=== PATIENT | female | born 1995 | race Caucasian/White ===

== ENCOUNTER 2017-07-10 18:52 | Emergency (ER) | payer MEDICAID, SELFPAY ==
[2017-07-10 18:56] VITALS: BP 146/85; PULSE 92; RESP 22; O2SAT 100; BMI 24.3
[2017-07-10 19:18] LABS: Microscopic, Urine URINE MICROSCOPIC (MICROSCOPIC)
[2017-07-10 19:21] LABS: Appearance,Urine SL CLOUDY (Clear); Bilirubin,Urine Negative (Negative); Blood, Urine Negative (Negative); Color,Urine YELLOW (Yellow); Glucose,Urine (UA) Negative (Negative); Ketones,Urine Negative (Negative); Leukocyte Esterase,Urine TRACE (Negative); Nitrate,Urine Negative (Negative); Protein,Urine Negative (Negative); Specific Gravity, Urine 1.025 (1.005-1.030); Urobilinogen,Urine 0.2 EU/dl (0.2)
[2017-07-10 19:49] LABS: Basophils % 0.3 % (0.1-2.0); Eosinophils # 0.2 K/mm3 (0.0-0.4); Eosinophils % 1.6 % (0.1-12.0); Hematocrit 37.9 % (37.0-47.0); Hemoglobin 12.4 g/dL (12.2-16.2); Lymphocytes # 2.3 K/mm3 (0.7-4.5); Mean Corpuscular HGB Conc 32.7 g/dL (31.8-35.4); Mean Corpuscular Hemoglobin 28.7 pg (27.0-31.2); Mean Corpuscular Volume 87.9 fl (81-99); Mean Platelet Volume 8.2 fl (7.4-10.4); Monocytes # 0.2 K/mm3 (0.1-1.0); Monocytes % 1.8 % (1.7-9.3); Neutrophils # 7.8 K/mm3 (1.8-7.8); Neutrophils % 74.2 % (37.0-80.0); Platelet Count 222 K/mm3 (142-424); Red Blood Count 4.32 M/mm3 (4.20-5.40); Red Cell Distribution Width 15.2 % (11.5-17.5); White Blood Count 10.5 K/mm3 (4.8-10.8)
[2017-07-10 19:56] LABS: Bacteria,Urine 2+ /lpf; RBC,Urine Occasional #/hpf (0-3); Squamous Epithelial Cell,Urine TNTC #/hpf (0-5); WBC,Urine Occasional #/hpf (0-3)
[2017-07-10 20:26] LABS: Alanine Aminotransferase 15 U/L (12-78); Albumin Level 3.1 gm/dL (3.4-5.0); Albumin/Globulin Ratio 0.8 (1.1-1.8); Alkaline Phosphatase 71 U/L (46-116); Anion Gap 12.8 mEq/L (5-15); Aspartate Amino Transferase 16 U/L (15-37); Bilirubin,Total 0.2 mg/dL (0.2-1.0); Blood Urea Nitrogen 6 mg/dL (7-18); Calcium 8.8 mg/dL (8.5-10.1); Carbon Dioxide 25 mmol/L (21.0-32.0); Chloride 105 mmol/L (98-107); Creatinine Clearance Estimated 173 mL/min (0-300); Creatinine,Serum 0.53 mg/dL (0.55-1.02); Estimated Glomerular Filt Rate 143 ml/min (>60); GFR (African American) 173 ML/MIN (>60); Glucose 74 mg/dL (74-106); Potassium 3.8 mmoL/L (3.5-5.1); Sodium 139 mmol/L (136-145); Total Protein,Serum 7.1 gm/dL (6.4-8.2)
--- NOTE | 2017-07-10 20:36 | HMH.EDBACK ---
ED Disposition Clinical Impression: Thoracic back pain Qualifiers: Chronicity: acute Back pain laterality: right Qualified Code(s): M54.6 - Pain in thoracic spine Qualifiers: Weeks of gestation: less than 8 weeks Qualified Code(s): Z3A.01 - Less than 8 weeks gestation of Disposition: Home, Self-Care Condition on Discharge: Good Instructions: Diet Additional Instructions: keep appt with dr castaneda this week Referrals: Marv Goodman MD [Primary Care Provider] - - Critical Care Critical Care Time: No Attestation: On 07/10/17, the high probability of a clinically significant, sudden or life threatening deterioration of the following system(s) required my full and direct attention, intervention and personal management. The time I documented below is in addition to time spent performing reported procedures but includes the following listed in this critical care notation. Medical Decision Making - Medical Records Medical records reviewed: Yes: I reviewed the patient's medical records. Vital Signs: 07/10/17 18:56 Pulse Rate [Right Brachial] 92 H Respiratory Rate 22 Blood Pressure [Right Arm] 146/85 Blood Pressure Mean [Right Arm] 105 Blood Pressure Source [Right Arm] Automatic Cuff Blood Pressure Position [Right Arm] Sitting 02 Sat by Pulse Oximetry 100 Oxygen Delivery Method Room Air - Lab Data Lab results reviewed: Yes: I reviewed the patient's lab results. Lab Results 07/10/17 19:10: Urine Color Yellow, Urine Appearance Sl cloudy, Urine pH 6.0, Ur Specific [place] 1.025, Urine Protein Negative, Urine Glucose (UA) Negative, Urine Ketones Negative, Urine Blood Negative, Urine Nitrate Negative, Urine Bilirubin Negative, Urine Urobilinogen 0.2, Ur Leukocyte Esterase Trace, Urine RBC Occasional, Urine WBC Occasional, Ur Squamous Epith Cells Tntc, Urine Bacteria 2+ 07/10/17 19:40: WBC 10.5, RBC 4.32, Hgb 12.4, Hct 37.9, MCV 87.9, MCH 28.7, MCHC 32.7, RDW 15.2, Plt Count 222, MPV 8.2, Neut % (Auto) 74.2, Lymph % (Auto) 22.0, [place] % (Auto) 1.8, Eos % (Auto) 1.6, Baso % (Auto) 0.3, Neut # (Auto) 7.8, Lymph # (Auto) 2.3, [place] # (Auto) 0.2, Eos # (Auto) 0.2, Baso # (Auto) 0.0 07/10/17 19:40: Sodium 139, Potassium 3.8, Chloride 105, Carbon Dioxide 25, Anion Gap 12.8, BUN 6 L, Creatinine 0.53 L, Estimated Creat Clear 173, Estimated GFR 143, Est GFR ( Amer) 173, Glucose 74, Calcium 8.8, Total Bilirubin 0.2, AST 16, ALT 15, Alkaline Phosphatase 71, Total Protein 7.1, Albumin 3.1 L, Globulin 4.0 H, Albumin/Globulin Ratio 0.8 L, HCG, Quant [id number] Result diagrams: 07/10/17 19:40 07/10/17 19:40 Orders (Tests/Meds): ED MEDICATIONS Discontinued Medications Generic Name Dose Route Start Last Admin Trade Name Freq PRN Reason Stop Dose Admin Sodium Chloride 1,000 mls @ 999 mls/hr 07/10/17 19:30 07/10/17 19:41 Sod Chloride 0.9% 1000ml Bag IV 07/10/17 20:30 999 mls/hr .Q1H1M ALONSO Administration ORDERS Category Date Time Status Urine Culture Stat Micro 07/10/17 19:10 Received - Ronald Inquiry Pt receiving controlled substance: No [facility] History I have reviewed the patient's past medical history: Yes Laterality Cases: Bilateral: Tonsillectomy Other Surgeries: Yes: Other - *Social History Smoking Status: Current every day smoker Tobacco Type: cigarettes # Packs/Day (cigarettes): 1 Alcohol Intake: never Substance Use Type: marijuana - Psychiatric History Expresses thoughts of harming self/others: None Suicide Plan Description: No Plan *Family Hx:: Hypertension, Diabetes, Stroke PHOTOVOLTAIC TECHNICIAN history: No PHOTOVOLTAIC TECHNICIAN history ROS Obtained: Yes All systems reviewed & no additional complaints - Constitutional Constitutional: Denies fever(s) - Eyes Eyes: Denies change in vision - ENT Ears, Nose, Mouth, and Throat: Denies sore throat - Cardiovascular Cardiovascular: Denies chest pain - Respiratory Respiratory: No cough - Gastrointestinal Gastroint
--- NOTE | 2017-07-10 20:39 | ED_ITS ---
ED Disposition Clinical Impression: Thoracic back pain Qualifiers: Chronicity: acute Back pain laterality: right Qualified Code(s): M54.6 - Pain in thoracic spine Qualifiers: Weeks of gestation: less than 8 weeks Qualified Code(s): Z3A.01 - Less than 8 weeks gestation of Disposition: Home, Self-Care Condition on Discharge: Good Instructions: Diet Additional Instructions: keep appt with dr castaneda this week Referrals: Marv Goodman MD [Primary Care Provider] - - Critical Care Critical Care Time: No Attestation: On 07/10/17, the high probability of a clinically significant, sudden or life threatening deterioration of the following system(s) required my full and direct attention, intervention and personal management. The time I documented below is in addition to time spent performing reported procedures but includes the following listed in this critical care notation. Medical Decision Making - Medical Records Medical records reviewed: Yes: I reviewed the patient's medical records. Vital Signs: 07/10/17 18:56 Pulse Rate [Right Brachial] 92 H Respiratory Rate 22 Blood Pressure [Right Arm] 146/85 Blood Pressure Mean [Right Arm] 105 Blood Pressure Source [Right Arm] Automatic Cuff Blood Pressure Position [Right Arm] Sitting 02 Sat by Pulse Oximetry 100 Oxygen Delivery Method Room Air - Lab Data Lab results reviewed: Yes: I reviewed the patient's lab results. Lab Results 07/10/17 19:10: Urine Color Yellow, Urine Appearance Sl cloudy, Urine pH 6.0, Ur Specific [place] 1.025, Urine Protein Negative, Urine Glucose (UA) Negative, Urine Ketones Negative, Urine Blood Negative, Urine Nitrate Negative, Urine Bilirubin Negative, Urine Urobilinogen 0.2, Ur Leukocyte Esterase Trace, Urine RBC Occasional, Urine WBC Occasional, Ur Squamous Epith Cells Tntc, Urine Bacteria 2+ 07/10/17 19:40: WBC 10.5, RBC 4.32, Hgb 12.4, Hct 37.9, MCV 87.9, MCH 28.7, MCHC 32.7, RDW 15.2, Plt Count 222, MPV 8.2, Neut % (Auto) 74.2, Lymph % (Auto) 22.0, [place] % (Auto) 1.8, Eos % (Auto) 1.6, Baso % (Auto) 0.3, Neut # (Auto) 7.8 , Lymph # (Auto) 2.3, [place] # (Auto) 0.2, Eos # (Auto) 0.2, Baso # (Auto) 0.0 07/10/17 19:40: Sodium 139, Potassium 3.8, Chloride 105, Carbon Dioxide 25, Anion Gap 12.8, BUN 6 L, Creatinine 0.53 L, Estimated Creat Clear 173, Estimated GFR 143, Est GFR ( Amer) 173, Glucose 74, Calcium 8.8, Total Bilirubin 0.2, AST 16, ALT 15, Alkaline Phosphatase 71, Total Protein 7.1, Albumin 3.1 L, Globulin 4.0 H, Albumin/Globulin Ratio 0.8 L, HCG, Quant [id number] H Result diagrams: 07/10/17 19:40 07/10/17 19:40 Orders (Tests/Meds): ED MEDICATIONS Discontinued Medications Generic Name Dose Route Start Last Admin Trade Name Freq PRN Reason Stop Dose Admin Sodium Chloride 1,000 mls @ 999 mls/hr 07/10/17 19:30 07/10/17 19:41 Sod Chloride 0.9% 1000ml Bag IV 07/10/17 20:30 999 mls/hr .Q1H1M ALONSO Administration ORDERS Category Date Time Status Urine Culture Stat Micro 07/10/17 19:10 Received - Ronald Inquiry Pt receiving controlled substance: No [facility] History I have reviewed the patient's past medical history: Yes Laterality Cases: Bilateral: Tonsillectomy Other Surgeries: Yes: Other - *Social History Smoking Status: Current every day smoker Tobacco Type: cigarettes # Packs/Day (cigarettes): 1
[2017-07-10 20:42] LABS: HCG,Quantitative 35626 mIU/mL
[2017-07-10 21:04] VITALS: BP 126/76; PULSE 80; RESP 12; TEMP 37; O2SAT 98
== END 2017-07-10 21:04 | disposition home or self-care (01) ==
PROVIDERS: Emergency Provider Emergency Medicine; PCP Emergency Medicine
DX: O26.891 Other specified pregnancy related conditions, first trimester (principal); M54.6 Pain in thoracic spine; O99.331 Smoking (tobacco) complicating pregnancy, first trimester; F17.210 Nicotine dependence, cigarettes, uncomplicated; Z3A.01 Less than 8 weeks gestation of pregnancy
CPT/HCPCS: 80053; 81001; 84702; 85025; 87086; 96365; 99283

== ENCOUNTER → 2017-07-13 11:05 | Outpatient (CLI) | payer MEDICAID, SELFPAY ==
[2017-07-13 11:36] LABS: Basophils % 0.3 % (0.1-2.0); Eosinophils # 0.1 K/mm3 (0.0-0.4); Eosinophils % 1.3 % (0.1-12.0); Hematocrit 36.7 % (37.0-47.0); Hemoglobin 11.9 g/dL (12.2-16.2); Lymphocytes # 2.1 K/mm3 (0.7-4.5); Lymphocytes % 32.6 K/mm3 (10-50); Mean Corpuscular HGB Conc 32.5 g/dL (31.8-35.4); Mean Corpuscular Hemoglobin 28.7 pg (27.0-31.2); Mean Corpuscular Volume 88.5 fl (81-99); Monocytes # 0.2 K/mm3 (0.1-1.0); Monocytes % 3.2 % (1.7-9.3); Neutrophils % 62.5 % (37.0-80.0); Platelet Count 223 K/mm3 (142-424); Red Blood Count 4.15 M/mm3 (4.20-5.40); Red Cell Distribution Width 15.5 % (11.5-17.5); White Blood Count 6.4 K/mm3 (4.8-10.8)
[2017-07-14 08:23] LABS: Rapid Plasma Reagin Ab Titer Non Reactive (NonRea<1:1)
[2017-07-14 19:24] LABS: HIV Screen 4th Generation wRfx Non Reactive (Non Reactive); Hepatitis B Surface Antigen Negative (Negative); Hepatitis C Antibody >11.0 s/co ratio (0.0-0.9); Rubella Antibodies, IgG 2.58 index (Immune >0.99)
== END ==
PROVIDERS: PCP Emergency Medicine; Visit Provider Nurse Practitioner Obstetrics & Gynecology
DX: Z34.90 Encounter for supervision of normal pregnancy, unspecified, unspecified trimester (principal)
CPT/HCPCS: 85025; 86592; 86703; 86762; 86850; 87340; 87380; G0432

== ENCOUNTER → 2017-07-17 09:06 | Outpatient (CLI) | payer MEDICAID, SELFPAY ==
--- NOTE | 2017-07-17 09:09 | US_ITS ---
US OB >= 14 weeks Fetus: INDICATION: ITS.REASON: US OB- Dates ORDERING PHYSICIAN: Cyrus Stein MD PATIENT AGE: 21 years TECHNIQUE: ultrasound transabdominal scanning. COMPARISON: No previous relevant studies. FINDINGS: Single viable intrauterine gestation. Cephalic position. Placenta: Anterior placenta grade 1. There is average amount fluid. The cervix appears satisfactory. Closed and measuring 4 cm with a small nabothian cyst or cystic area within the endocervical region at 8 mm. in length. Complete survey performed and was unremarkable on the submitted images as in PACS. No discrete anomalies identified on survey imaging by technologist. Active fetus. Three-vessel cord with satisfactory umbilical cord insertion. 4- chamber heart noted. Survey of brain & ventricles. Face and neck survey unremarkable. Diaphragm and chest views unremarkable. Abdomen: Both kidneys noted and unremarkable. Stomach noted and satisfactory. Spine: Survey of the spine satisfactory with no anomalies identified nor imaged. Both arms and legs noted. Amniotic Fluid: Adequate. Maternal adnexa: No significant findings. Measurements: Average ultrasound age 19w1d. Gestational Age 23w3d. Estimated due date by ultrasound age 0712/10/2017. Estimated weight 276 grams.. This is 2nd percentile according to last menstrual period. BPD = 19w0d OFD = 19w3d HC = 18w4d AC = 19w6d FL = 18w5d Heart Rate = 155 Cerebellum = 19w4d Humerus = 18w5d HC/AC is 1.08 (1.05-1.21). CI is 76% (70-86%). FL/BPD is 66% (71-87%). FL/AC is 20% (20-24%). IMPRESSION: There is a single live fetus present in cephalic presentation with an average ultrasound age of 19 weeks 1 day and estimated due date of 12-10-17. Estimated weight is 276 g which is only at 2nd percentile. No obvious anatomic abnormalities. Please see above for detail.
== END ==
PROVIDERS: Family Provider Emergency Medicine; PCP Emergency Medicine; Visit Provider Nurse Practitioner Obstetrics & Gynecology
DX: O26.841 Uterine size-date discrepancy, first trimester (principal)
CPT/HCPCS: 76805

== ENCOUNTER 2017-07-22 10:19 | Emergency (ER) | payer MEDICAID, SELFPAY ==
[2017-07-22 10:51] VITALS: BP 123/63; PULSE 85; RESP 18; TEMP 36.6; O2SAT 100; BMI 25.0
[2017-07-22 11:38] LABS: Microscopic, Urine URINE MICROSCOPIC (MICROSCOPIC)
[2017-07-22 11:43] LABS: Appearance,Urine SL CLOUDY (Clear); Blood, Urine 2+ (Negative); Color,Urine YELLOW (Yellow); Glucose,Urine (UA) Negative (Negative); Ketones,Urine Negative (Negative); Leukocyte Esterase,Urine Negative (Negative); Nitrate,Urine Negative (Negative); Protein,Urine TRACE (Negative)
[2017-07-22 11:44] LABS: Basophils % 0.2 % (0.1-2.0); Eosinophils # 0.2 K/mm3 (0.0-0.4); Hematocrit 35.4 % (37.0-47.0); Hemoglobin 11.5 g/dL (12.2-16.2); Lymphocytes # 1.9 K/mm3 (0.7-4.5); Lymphocytes % 29.4 K/mm3 (10-50); Mean Corpuscular HGB Conc 32.5 g/dL (31.8-35.4); Mean Corpuscular Hemoglobin 28.6 pg (27.0-31.2); Mean Platelet Volume 8.1 fl (7.4-10.4); Monocytes # 0.2 K/mm3 (0.1-1.0); Monocytes % 2.7 % (1.7-9.3); Neutrophils # 4.1 K/mm3 (1.8-7.8); Neutrophils % 64.7 % (37.0-80.0); Platelet Count 210 K/mm3 (142-424); Red Blood Count 4.02 M/mm3 (4.20-5.40); Red Cell Distribution Width 15.2 % (11.5-17.5); White Blood Count 6.4 K/mm3 (4.8-10.8)
[2017-07-22 11:45] LABS: Bilirubin,Urine Negative (Negative)
[2017-07-22 11:54] LABS: Bacteria,Urine 3+ /lpf; Mucus,Urine 3+ /lpf
[2017-07-22 11:55] LABS: Alanine Aminotransferase 16 U/L (12-78); Albumin Level 2.8 gm/dL (3.4-5.0); Albumin/Globulin Ratio 0.7 (1.1-1.8); Alkaline Phosphatase 60 U/L (46-116); Anion Gap 10.7 mEq/L (5-15); Aspartate Amino Transferase 10 U/L (15-37); Bilirubin,Total 0.2 mg/dL (0.2-1.0); Blood Urea Nitrogen 6 mg/dL (7-18); Calcium 8.7 mg/dL (8.5-10.1); Carbon Dioxide 27 mmol/L (21.0-32.0); Chloride 104 mmol/L (98-107); Creatinine Clearance Estimated 219 mL/min (0-300); Creatinine,Serum 0.43 mg/dL (0.55-1.02); Estimated Glomerular Filt Rate 182 ml/min (>60); GFR (African American) 220 ML/MIN (>60); Globulin 3.8 gm/dl (1.3-3.2); Glucose 82 mg/dL (74-106); Potassium 3.7 mmoL/L (3.5-5.1); Sodium 138 mmol/L (136-145); Total Protein,Serum 6.6 gm/dL (6.4-8.2)
[2017-07-22 13:40] VITALS: BP 112/75; PULSE 80; RESP 18; TEMP 36.1
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
== END 2017-07-22 13:38 | disposition home or self-care (01) ==
LOC: ER 11:31
PROVIDERS: Emergency Provider Emergency Medicine; Family Provider Emergency Medicine; PCP Nurse Practitioner Obstetrics & Gynecology
DX: O46.8X2 Other antepartum hemorrhage, second trimester (principal); Z3A.19 19 weeks gestation of pregnancy; F17.210 Nicotine dependence, cigarettes, uncomplicated; Z88.0 Allergy status to penicillin; Z88.6 Allergy status to analgesic agent
CPT/HCPCS: 80053; 81001; 85025; 86900; 86901; 87086; 99281

== ENCOUNTER → 2017-08-09 16:22 | Outpatient (REF) | payer MEDICAID, SELFPAY | LOC: LAB 16:22 | PROVIDERS: Visit Provider Nurse Practitioner Obstetrics & Gynecology | DX: Z34.90 Encounter for supervision of normal pregnancy, unspecified, unspecified trimester (principal) | CPT/HCPCS: 87086 ==

== ENCOUNTER 2017-09-26 14:42 | Outpatient (CLI) | payer SELFPAY ==
[2017-09-26 14:56] VITALS: BMI 23.8
[2017-09-26 15:03] VITALS: BP 115/64; PULSE 68; RESP 16; TEMP 36.9; O2SAT 95; BMI 23.8
[2017-09-26 15:04] LABS: Microscopic, Urine URINE MICROSCOPIC (MICROSCOPIC)
[2017-09-26 15:05] LABS: Appearance,Urine CLEAR (Clear); Blood, Urine Negative (Negative); Color,Urine YELLOW (Yellow); Glucose,Urine (UA) Negative (Negative); Ketones,Urine Negative (Negative); Leukocyte Esterase,Urine TRACE (Negative); Nitrate,Urine Negative (Negative); Protein,Urine TRACE (Negative)
[2017-09-26 15:41] LABS: Bilirubin,Urine 1+ (Negative)
[2017-09-26 15:44] LABS: Bacteria,Urine 2+ /lpf; Mucus,Urine 4+ /lpf; RBC,Urine Occasional #/hpf (0-3); Squamous Epithelial Cell,Urine 20-50 #/hpf (0-5)
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
[2017-09-26 17:42] LABS: Basophils % 0.1 % (0.1-2.0); Eosinophils # 0.1 K/mm3 (0.0-0.4); Eosinophils % 1.2 % (0.1-12.0); Hematocrit 25.8 % (37.0-47.0); Hemoglobin 8.5 g/dL (12.2-16.2); Lymphocytes # 1.5 K/mm3 (0.7-4.5); Lymphocytes % 13.7 K/mm3 (10-50); Mean Corpuscular Hemoglobin 29.7 pg (27.0-31.2); Mean Corpuscular Volume 89.8 fl (81-99); Mean Platelet Volume 8.3 fl (7.4-10.4); Monocytes # 0.2 K/mm3 (0.1-1.0); Monocytes % 1.8 % (1.7-9.3); Neutrophils # 9.3 K/mm3 (1.8-7.8); Neutrophils % 83.2 % (37.0-80.0); Platelet Count 305 K/mm3 (142-424); Red Blood Count 2.88 M/mm3 (4.20-5.40); Red Cell Distribution Width 13.4 % (11.5-17.5); White Blood Count 11.2 K/mm3 (4.8-10.8)
[2017-09-26 17:55] LABS: Anion Gap 13.2 mEq/L (5-15); Blood Urea Nitrogen 4 mg/dL (7-18); Carbon Dioxide 23 mmol/L (21.0-32.0); Chloride 102 mmol/L (98-107); Creatinine Clearance Estimated 178 mL/min (0-300); Estimated Glomerular Filt Rate 152 ml/min (>60); GFR (African American) 183 ML/MIN (>60); Glucose 130 mg/dL (74-106); Potassium 3.2 mmoL/L (3.5-5.1); Sodium 135 mmol/L (136-145)
== END 2017-09-26 20:11 | disposition home or self-care (01) ==
LOC: OBOUT 14:46 → OB 14:47
PROVIDERS: PCP Nurse Practitioner Obstetrics & Gynecology; Visit Provider Nurse Practitioner Obstetrics & Gynecology
DX: O26.899 Other specified pregnancy related conditions, unspecified trimester (principal); V89.2XXA Person injured in unspecified motor-vehicle accident, traffic, initial encounter; Z3A.29 29 weeks gestation of pregnancy
CPT/HCPCS: 36415; 59025; 80048; 81001; 85025; 87086; 96360

== ENCOUNTER → 2017-11-01 13:59 | Outpatient (CLI) | payer MEDICAID, SELFPAY ==
--- NOTE | 2017-11-01 | US_ITS ---
US OB biophysical profile, US OB follow up, US SD Ratio umbilical artery: COMPARISON is made to 07/17/2017 Indication: Small for gestational age ITS.REASON: SGA-US OB BPP and Growth ORDERING PHYSICIAN: Cyrus Stein MD PATIENT AGE: 22 years FINDINGS: The following parameters are obtained: Average ultrasound age is 32w4d. Estimated due date by ultrasound is 12/23/2017. Estimated weight is 1886 g. This is 3rd percentile. The estimated due date by previous ultrasound of 07/17/2017 was 12/10/2017 BPD: 33w0d OFD: 33w4d HC: 33w0d AC: 31w6d FL: 32w0d heart rate: 128 bpm. HC/AC: 1.07 (0.96-1.11) Cephalic index: 77% (70-86%) FL/BPD: 75% (71-87%) FL/AC: 22% (20-24%) Amniotic fluid index: 13 cm Qualitative AFV: 2 breathing movements: 2 Gross body movements: 2 Tone: 2 Biophysical profile score: 8/8 Doppler evaluation of the umbilical artery: SD ratio: 3.9. This is slightly elevated Resistive index: 0.74 No obvious anomalies evident. Placenta: Anterior GR 2. No previa or abruption Cervix: Appears closed and measures 3 cm IMPRESSION: There is a single live fetus which is in cephalic presentation with an average ultrasound age of 32 weeks 4 days and an estimated due date of 12/23/2017 which is approximately 2 weeks behind estimated due date of previous ultrasound. Estimated weight is at the 3rd percentile at 1886 g. Placenta is anterior and grade 2. SD ratio is slightly elevated at 3.9.
== END ==
PROVIDERS: Family Provider Emergency Medicine; PCP Nurse Practitioner Obstetrics & Gynecology; Visit Provider Nurse Practitioner Obstetrics & Gynecology
DX: O36.5131 Maternal care for known or suspected placental insufficiency, third trimester, fetus 1 (principal)
CPT/HCPCS: 76816; 76819; 76820

== ENCOUNTER → 2017-11-09 17:27 | Outpatient (REF) | payer MEDICAID, SELFPAY | LOC: LAB 17:27 | PROVIDERS: Visit Provider Nurse Practitioner Obstetrics & Gynecology | DX: Z34.90 Encounter for supervision of normal pregnancy, unspecified, unspecified trimester (principal) | CPT/HCPCS: 86403 ==

== ENCOUNTER → 2018-11-29 17:40 | Outpatient (CLI) | payer MEDICAID, SELFPAY ==
[2018-11-29 18:41] LABS: HCG,Quantitative 1 mIU/mL
== END ==
PROVIDERS: Visit Provider Nurse Practitioner Obstetrics & Gynecology
DX: Z32.00 Encounter for pregnancy test, result unknown (principal)
CPT/HCPCS: 36415; 84702

== ENCOUNTER → 2019-10-27 14:23 | Outpatient (CLI) | payer OTHER, SELFPAY ==
--- NOTE | 2019-10-27 14:24 | US_ITS ---
PROCEDURE: US OB <= 14 WEEKS FETUS CLINICAL INDICATION: size and dates Early Ob ultrasound COMPARISON: OBBIO US OB biophysical profile from 11/01/2017 FINDINGS: An intrauterine gestational sac is present with a pole with a crown-rump length of 1.67cm correlating to gestational age of 8weeks 1day. heart tones are present with an FHR of 146bpm. Yolk sac is noted. Unremarkable adnexa IMPRESSION: Live IUP at 8 weeks 1 day. Estimated due date by Ultrasound is 06/06/2020 Dictated by: Mina Mehta MD 10/27/2019 16:16 Electronically signed by Mina Mehta MD in [place] 10/27/2019 16:16
== END ==
PROVIDERS: PCP Internal Medicine; Visit Provider Obstetrics & Gynecology
DX: Z34.90 Encounter for supervision of normal pregnancy, unspecified, unspecified trimester (principal)
CPT/HCPCS: 76801

== ENCOUNTER 2019-11-26 20:46 | Emergency (ER) | payer OTHER, SELFPAY ==
[2019-11-26 20:47] VITALS: BP 134/85; PULSE 86; RESP 19; TEMP 36.8; O2SAT 97; BMI 22.3
[2019-11-26 21:31] LABS: Apearance,Urine Clear (Clear); Bilirubin,Urine 2+ (Negative); Blood, Urine Negative (Negative); Color,Urine Dark Yellow (Yellow); Glucose,Urine (UA) Negative (Negative); Ketones,Urine TRACE (Negative); Protein,Urine 1+ (Negative); Specific Gravity, Urine 1.025 (1.005-1.030)
[2019-11-26 21:32] LABS: UTC Leukocyte Esterase,Urine Negative (Negative); UTC Nitrate,Urine Negative (Negative); Urobilinogen,Urine 1 EU/dl (0.2)
--- NOTE | 2019-11-26 21:34 | HMH.EDUTC ---
[facility] Disposition Clinical Impression: Abscess Cellulitis Qualifiers: Site of cellulitis: extremity Site of cellulitis of extremity: lower extremity Laterality: right Qualified Code(s): L03.115 - Cellulitis of right lower limb Disposition: Home, Self-Care Condition on Discharge: Good Instructions: Cellulitis, Cephalexin, Mupirocin, DI for Skin Abscess Additional Instructions: *Start antibiotic(s) immediately and be sure to take as ordered for the FULL length of time although you may be feeling better or start to see improvement in the next 24-48 hours *Monitor closely. Outlined redness so that you can monitor easier. Follow up immediately for new or worsening symptoms including but not limited to redness, swelling, streaking from site fever or chills. *Warm compress 15 minutes 3-4 times day *Never squeeze or pop these on your own. Seek immediate medical attention next time this occurs *Monitor Temp. Tylenol every 4 hours as needed and ibuprofen every 6 hours as needed (as long as your primary care doctor has told you that it is ok to take both. For fever, aches, pain. ER if no less that 101 despite Tylenol and ibuprofen Follow up with your family doctor/primary care physician in the next 48-72 hours if no improvement Make sure to follow up with Dr Melton for further evaluation and treatment of area Return if needed Straight to ER if any life threatening symptoms Prescriptions: cephALEXin [Keflex 500mg Cap] 500 mg PO QID 7 Days #28 cap Transmission Status: Pending to [facility] Mupirocin Calcium [Mupirocin 2% Cream 15gm] 1 applicatio TP TID #1 tube Transmission Status: Pending to [facility] Referrals: Catarino Melton [Primary Care Provider] - As needed Forms: Work/School Release Time of Disposition: 21:36 Medical Decision Making - Ronald Inquiry Pt receiving controlled substance: No Ronald was queried for this patient: No Vital Signs: 11/26/19 20:47 Temperature 98.2 F Temperature Source Oral Pulse Rate [Right] 86 Respiratory Rate 19 Blood Pressure [Right Arm] 134/85 Blood Pressure Mean [Right Arm] 101 02 Sat by Pulse Oximetry 97 - Lab Data Lab results reviewed: Yes: I reviewed the patient's lab results. Lab Results 11/26/19 21:09: Urine Color Dark yellow, Urine Appearance Clear, Urine pH 6.0, Ur Specific [place] 1.025, Urine Protein 1+, Urine Glucose (UA) Negative, Urine Ketones Trace, Urine Blood Negative, Urine Nitrate Negative, Urine Bilirubin 2+ A, Urine Urobilinogen 1, Ur Leukocyte Esterase Negative - Reevaluation(s) Time: 21:39 Reevaluation #1: Patient states that she is allergic to PCN but has taken Keflex in the past without reaction or complications [facility] HPI - General Stated complaint: spot on leg Time Seen by Provider: 11/26/19 21:34 Mode of Arrival: Ambulatory Limitations: No Limitations Description of Symptoms (Recalled from Triage Doc. by RN): Possible UTI and bug bite on right calf HEENT Symptoms (Recalled from RN notes): No Resp Symptoms (Recalled from RN notes): No Skin Symptoms (Recalled from RN notes): Yes MS Symptoms (Recalled from RN notes): No Functional Status (Recalled from RN notes): na - History of Present Illness Provider Complaint: Patient states that she noticed she had hard red spot on her right lower leg and she watched it for the last couple of days to see if would go away and it didnt State that she noticed it was red and hard and she thought it may be a bug bite that got infected and she has history of abscess also wants to get her urine checked for UTI states that she is 3mth OB and having some burning with urination - Related Data Home Medications Medication Instructions Recorded Confirmed buprenorphine 8 mg-naloxone 2 mg 1 tab SUBLINGUAL BID tab 10/30/19 sublingual tablet gabapentin 600 mg tablet 600 mg PO QID tab 10/30/19 meloxicam 15 mg tablet 15 mg PO DAILY 10/30/19 Previous Rx's Medication Instructions Recorded ondans
[2019-11-26 21:37] VITALS: BP 130/85; PULSE 80; RESP 20; TEMP 36.8; O2SAT 98
== END 2019-11-26 21:39 | disposition home or self-care (01) ==
PROVIDERS: Emergency Provider Nurse Practitioner; PCP Internal Medicine
DX: L03.115 Cellulitis of right lower limb (principal); F17.210 Nicotine dependence, cigarettes, uncomplicated; Z90.09 Acquired absence of other part of head and neck
CPT/HCPCS: 81003; 99201

== ENCOUNTER 2019-12-12 20:38 | Emergency (ER) | payer OTHER, SELFPAY ==
[2019-12-12 20:53] VITALS: BP 127/77; PULSE 68; RESP 20; TEMP 36.8; O2SAT 97; BMI 21.6
--- NOTE | 2019-12-12 20:54 | HMH.EDUTC ---
[facility] [place] Disposition Clinical Impression: Qualifiers: Weeks of gestation: 13 weeks Qualified Code(s): Z3A.13 - 13 weeks gestation of Nausea & vomiting Qualifiers: Vomiting type: unspecified Vomiting Intractability: non-intractable Qualified Code(s): R11.2 - Nausea with vomiting, unspecified Disposition: Home, Self-Care Condition on Discharge: Good Instructions: Diet Additional Instructions: Drink plenty of fluids. Take tylenol or ibuprofen for pain or fever. Take the medications as directed. Follow up with your regular doctor. GO TO THE ER FOR ANY WORSENING SYMPTOMS Prescriptions: Ondansetron [Zofran 4mg ODT] 4 mg PO Q8HP PRN #9 tab.rapdis PRN Reason: Nausea Transmission Status: Pending to [facility] Referrals: Catarino Melton [Primary Care Provider] - Forms: Work/School Release Time of Disposition: 20:58 Medical Decision Making - Medical Records Medical records reviewed: No: I reviewed the patient's medical records. - Ronald Inquiry Pt receiving controlled substance: No Vital Signs: 12/12/19 20:53 Temperature 98.2 F Temperature Source Oral Pulse Rate [Left Brachial] 68 Respiratory Rate 20 Blood Pressure [Left Arm] 127/77 Blood Pressure Mean [Left Arm] 93 Blood Pressure Source [Left Arm] Automatic Cuff Blood Pressure Position [Left Arm] Sitting 02 Sat by Pulse Oximetry 97 Oxygen Delivery Method Room Air [facility] [place] HPI - General Stated complaint: nausea 13 weeks Time Seen by Provider: 12/12/19 20:54 - History of Present Illness Provider Complaint: She c/o nausea and vomiting. She is 13 weeks . She has ran out of the nausea medications that were prescribed by Dr. Bradley (her ob doctor). She denies any blood in her vomit. She denies any diarrhea. She denies any abdominal pain or other complaints. - Related Data Home Medications Medication Instructions Recorded Confirmed buprenorphine 8 mg-naloxone 2 mg 1 tab SUBLINGUAL BID tab 10/30/19 sublingual tablet gabapentin 600 mg tablet 600 mg PO QID tab 10/30/19 Previous Rx's Medication Instructions Recorded ondansetron 4 mg disintegrating 4 mg PO Q8H #30 tab 11/05/19 tablet Mupirocin Calcium [Mupirocin 2% 1 applicatio TP TID #1 tube 11/26/19 Cream 15gm] cephALEXin [Keflex 500mg Cap] 500 mg PO QID 7 Days #28 cap 11/26/19 Ondansetron [Zofran 4mg ODT] 4 mg PO Q8HP PRN #9 tab.rapdis 12/12/19 Allergies Allergy/AdvReac Type Severity Reaction Status Date / Time morphine [MORPHINE] Allergy Unknown Verified 11/28/19 11:59 Penicillins [PENICILLINS] Allergy Unknown Verified 11/28/19 11:59 [facility] History - Hepatitis A Screen Attestation statement:: This patient has been screened for Hepatitis A risk factors. I have reviewed the patient's past medical history: Yes Medical History: Denies:: Cancer, Diabetes Mellitus Type 1, Diabetes Mellitus Type 2, MRSA Other Medical History: Reports: Liver Disease Laterality Cases: Bilateral: Tonsillectomy Other Surgeries: Yes: Other. No: Amputation: No Fractures: No Comment: 2004-tonsils - Social History Smoking Status: Current every day smoker Tobacco Type: cigarettes # Packs/Day (cigarettes): 1 #Yrs smoked (if former smoker): 10 Alcohol Intake: never Substance Use Type: former substance user Occupational Status: employed Housing: apartment Household Members: significant other Family Hx:: Hypertension, Diabetes, Stroke, Heart Attack DRAGLINE OPERATOR HELPER history: No DRAGLINE OPERATOR HELPER history ROS Obtained: No All systems reviewed & no additional complaints - Constitutional Constitutional: Denies chills, Denies fever(s) - Gastrointestinal Gastrointestingal: Reports: as per HPI - Genitourinary Female Genitourinary: Denies dysuria, Denies urinary frequency, Denies urinary incontinence, Denies urinary hesitancy, Denies urinary urgency - Musculoskeletal Musculoskeletal: Denies back pain - Integumentary/Breasts S
[2019-12-12 20:59] VITALS: BP 127/77; PULSE 68; RESP 20; TEMP 36.8; O2SAT 97
== END 2019-12-12 21:03 | disposition home or self-care (01) ==
PROVIDERS: Emergency Provider Nurse Practitioner Family; PCP Internal Medicine
DX: O21.0 Mild hyperemesis gravidarum (principal); Z3A.13 13 weeks gestation of pregnancy; F17.210 Nicotine dependence, cigarettes, uncomplicated
CPT/HCPCS: 99201

== ENCOUNTER → 2020-01-22 14:54 | Outpatient (CLI) | payer OTHER, SELFPAY ==
--- NOTE | 2020-01-22 14:54 | US_ITS ---
PROCEDURE: US OB /MATERNAL DETAIL CLINICAL INDICATION: US OB Complete COMPARISON: US US OB <= 14 WEEKS FETUS from 10/27/2019 FINDINGS: There is a single live fetus which is in cephalic presentation. heart and body motion is noted. The cervix is closed without shortening. The cervix measures 3 cm transabdominal. The placenta is posterior and high. Complete survey performed and was unremarkable on the submitted images as in PACS. No discrete anomalies identified on survey imaging by technologist. Active fetus. Three-vessel cord with satisfactory umbilical cord insertion. 4- chamber heart noted. Survey of brain & ventricles Unremarkable. Face and neck survey unremarkable. Diaphragm and chest views unremarkable. Abdomen: Both kidneys noted and unremarkable. Stomach noted and satisfactory. Spine: Survey of the spine satisfactory with no anomalies identified nor imaged. Both arms and legs noted. Amniotic Fluid: Adequate. Maternal adnexa: No significant findings. Measurements: Average ultrasound age 20weeks 3days. Gestational Age 20weeks 4days Estimated due date by ultrasound age 1206/07/2020. Estimated weight 353g BPD = 20weeks 5days OFD = 20weeks 5days HC = 20weeks AC = 20weeks 4days FL = 20weeks 3days Growth Percentile= 29percent% Heart Rate = 147bpm Cerebellum = 20weeks 4days Humerus = HC/AC is 1.13 CI is 0.79 FL/BPD is 0.69 FL/AC is 0.22 IMPRESSION: Live IUP at 20 weeks 3 days. All parameters correlate with no obvious anomalies. Please see above for detail Dictated by: Mina Mehta MD 01/23/2020 11:43 Mina Mehta MD in [place] 01/23/2020 11:43
== END ==
PROVIDERS: PCP Internal Medicine; Visit Provider Obstetrics & Gynecology
DX: Z36.0 Encounter for antenatal screening for chromosomal anomalies (principal)
CPT/HCPCS: 76811

== ENCOUNTER 2020-01-27 20:56 | Emergency (ER) | payer OTHER, SELFPAY ==
[2020-01-27 21:09] VITALS: PULSE 80; RESP 20; TEMP 37.1; O2SAT 98; BMI 20.9
--- NOTE | 2020-01-27 21:27 | HMH.EDUTC ---
[facility] [place] Clinical Impression: Scabies Disposition: Home, Self-Care Condition on Discharge: Good Instructions: Scabies, DI for Scabies, Permethrin Topical Additional Instructions: Permethrin 5% cream for all family members[1] Apply from neck down to your toes before bed Leave on for 8-12hr before washing off with shower Repeat in 14 days if no improvement You may continue to have itching for the next few days after using cream Follow up with Family doctor if no improvement or any worsening of symptoms Return if needed Straight to ER if any life threatening symptoms Make sure to wash all bed linen, toys and furniture Prescriptions: Permethrin [Elimite 5% cream 60gm tube] 1 applicatio TP DIRECTED #1 tube Transmission Status: Sent to [facility] Referrals: Catarino Melton [Primary Care Provider] - As needed Time of Disposition: 21:31 Medical Decision Making - Ronald Inquiry Pt receiving controlled substance: No Ronald was queried for this patient: No Vital Signs: 01/27/20 21:09 Temperature 98.7 F Temperature Source Oral Pulse Rate [Right Brachial] 80 Respiratory Rate 20 02 Sat by Pulse Oximetry 98 Oxygen Delivery Method Room Air [facility] [place] HPI - General Stated complaint: Possible bug bites Time Seen by Provider: 01/27/20 21:10 Mode of Arrival: Ambulatory Source of Information: Patient Limitations: No Limitations Description of Symptoms (Recalled from Triage Doc. by RN): PATIENT C/O POSSIBLE SCABIES HEENT Symptoms (Recalled from RN notes): No Resp Symptoms (Recalled from RN notes): No Skin Symptoms (Recalled from RN notes): Yes MS Symptoms (Recalled from RN notes): No Functional Status (Recalled from RN notes): WNL - History of Present Illness Provider Complaint: Patient states they have been cleaning out an abandoned house and thinks she has got scabies States that she noticed she was having bites on her lower legs, feet and between her toes States that she noticed they seem to moving up her legs and she wanted to come in and get checked States that she is and wanted to get treated if needed - Related Data Home Medications Medication Instructions Recorded Confirmed buprenorphine 8 mg-naloxone 2 mg 1 tab SUBLINGUAL BID tab 10/30/19 12/12/19 sublingual tablet gabapentin 600 mg tablet 600 mg PO QID tab 10/30/19 12/12/19 prenat.vits,jesús,ddb-lbbr-rowwe 1 tab PO DAILY 12/25/19 Previous Rx's Medication Instructions Recorded ondansetron 4 mg disintegrating 4 mg PO Q4H PRN #30 tab 12/15/19 tablet Permethrin [Elimite 5% cream 60gm 1 applicatio TP DIRECTED #1 tube 01/27/20 tube] Allergies Allergy/AdvReac Type Severity Reaction Status Date / Time morphine [MORPHINE] Allergy Unknown Verified 12/25/19 15:27 Penicillins [PENICILLINS] Allergy Unknown Verified 12/25/19 15:27 - Worker's Comp Is this a Worker's Comp case?: No [facility] History - Hepatitis A Screen Drug use history?: No High risk sexual behaviors?: No History of sexually transmitted infection?: No Currently employed?: No Childcare worker?: No Do you have indoor plumbing?: Yes Do you have electricity?: Yes Attestation statement:: This patient has been screened for Hepatitis A risk factors. I have reviewed the patient's past medical history: Yes Medical History: Denies:: Cancer, Diabetes Mellitus Type 1, Diabetes Mellitus Type 2, MRSA Other Medical History: Reports: Liver Disease Laterality Cases: Bilateral: Tonsillectomy Other Surgeries: Yes: Other. No: Amputation: No Fractures: No Comment: 2004-tonsils - Social History Smoking Status: Current every day smoker Tobacco Type: cigarettes # Packs/Day (cigarettes): 1 #Yrs smoked (if former smoker): 10 Alcohol Intake: never Substance Use Type: former substance user Occupational Status: other Housing: apartment Household Members: significant other Family Hx:: Hypertension, Diabetes, Stroke, Heart Attack ACUTE CARE ASSISTANT history: No OB
[2020-01-27 21:34] VITALS: BP 00/00; PULSE 80; RESP 20; TEMP 37.1; O2SAT 98
== END 2020-01-27 21:39 | disposition home or self-care (01) ==
PROVIDERS: Emergency Provider Nurse Practitioner; PCP Internal Medicine
DX: B86 Scabies (principal); F17.210 Nicotine dependence, cigarettes, uncomplicated
CPT/HCPCS: 99201

== ENCOUNTER → 2020-02-05 15:35 | Outpatient (CLI) | payer OTHER, SELFPAY ==
[2020-02-06 18:40] LABS: Amphetamine/Metha Screen,Urine Negative ng/ml (<1000)
[2020-02-06 18:41] LABS: Barbiturates Screen,Urine Negative ng/ml (<200)
[2020-02-06 18:42] LABS: Benzodiazepines Screen,Urine Negative ng/ml (<200)
[2020-02-06 18:45] LABS: Cannabinoid Screen,Urine Positive ng/ml (<50)
[2020-02-06 18:46] LABS: Cocaine Screen,Urine Negative ng/ml (<300)
[2020-02-06 18:47] LABS: Methadone Screen,Urine Negative ng/ml (<300)
[2020-02-06 18:48] LABS: Opiate Screen,Urine Negative ng/ml (<300)
[2020-02-06 18:49] LABS: Phencyclidine Screen,Urine Negative ng/ml (<25)
== END ==
PROVIDERS: Visit Provider Obstetrics & Gynecology
DX: Z34.90 Encounter for supervision of normal pregnancy, unspecified, unspecified trimester (principal)
CPT/HCPCS: 80305

== ENCOUNTER → 2020-04-15 12:58 | Outpatient (CLI) | payer OTHER, SELFPAY ==
--- NOTE | 2020-04-15 12:58 | US_ITS ---
PROCEDURE: US OB FOLLOW UP CLINICAL INDICATION: US OB- growth PETROS- SGA Small for gestational age COMPARISON: US US OB /MATERNAL DETAIL from 01/22/2020 FINDINGS: There is a single live fetus with an average ultrasound age of 31 weeks and 3 days. The fetus is in cephalic presentation. heart and body motion is noted. The placenta is posterior and fundal in implantation and is grade 2. The cervix is closed and measures 4 cm. BPD 32 weeks 0 days, OFD 32 weeks 0 days, HC 31 weeks 6 days, AC 32 weeks 0 days, FL 29 weeks 6 days. Estimated weight is 1734 g which is 10th percentile. PETROS is 21 cm. Biophysical profile is 8 of 8. The FL/BPD and FL/AC are both at lower limits of normal. Femur length is slightly low. IMPRESSION: Live IUP with an average ultrasound age is 31 weeks 3 days. Estimated weight is 1734 g which is 10th percentile which is borderline for intrauterine growth restriction. Continued follow-up is suggested. Biophysical profile is 8 of 8. Dictated by: Mina Mehta MD 04/15/2020 16:49 Mina Mehta MD in [place] 04/15/2020 16:49
== END ==
PROVIDERS: PCP Internal Medicine; Visit Provider Obstetrics & Gynecology
DX: O36.5990 Maternal care for other known or suspected poor fetal growth, unspecified trimester, not applicable or unspecified (principal)
CPT/HCPCS: 76816

== ENCOUNTER 2020-05-12 15:09 | Inpatient (IN) | payer OTHER, SELFPAY ==
[2020-05-12 15:10] VITALS: BP 116/78; PULSE 95; RESP 20; TEMP 36.6; O2SAT 100; BMI 23.8
[2020-05-12 15:17] VITALS: BMI 23.1
--- NOTE | 2020-05-12 16:03 | HMH.HP ---
*Admission Date: 05/12/20 *Chief complaint: contractions *History of present illness: @ 36 08/15 presented with active labor cervix completely dilated with BBOW upon presentation to triage Admitted with spontaneous precipitous delivery before IV access was even achieved complicated by chronic subutex use (16mg daily), tobacco abuse, hepatitis C and IUGR of 10%. Previous delivered approximately 35 wks for IUGR 1% [facility] History I have reviewed the patient's past medical history: Yes Medical History: Denies:: Cancer, Diabetes Mellitus Type 1, Diabetes Mellitus Type 2, MRSA *Have you ever received a pneumonia vaccine?: No *Have you received a flu vaccine this season?: No Other Medical History: Reports: Liver Disease Laterality Cases: Bilateral: Tonsillectomy Other Surgeries: Yes: Other. No: Amputation: No Fractures: No - *Social History Smoking Status: Current every day smoker Tobacco Type: cigarettes # Packs/Day (cigarettes): 1 #Yrs smoked (if former smoker): 10 Alcohol Intake: never Substance Use Type: former substance user *Occupational Status:: other Housing: apartment Household Members: significant other *Travel in the last 8 weeks: None Family Hx:: Hypertension, Diabetes, Stroke, Heart Attack : 2 Para: 1 LMP comments: Review of Systems - Review of Systems Review of systems:: pertinent systems reviewed and negative unless documented below - *Genitourinary Reports other Comments: uterine contractions - *Musculoskeletal Reports back pain Meds Home Medications Medication Instructions Recorded Confirmed Type gabapentin 600 mg tablet 600 mg PO QID tab 10/30/19 12/12/19 History ondansetron 4 mg disintegrating 4 mg PO Q4H PRN #30 tab 12/15/19 Rx tablet prenat.vits,jesús,eor-bzcc-owwiv 1 tab PO DAILY 12/25/19 History buprenorphine 8 mg-naloxone 2 mg 2 tab SUBLINGUAL DAILY tab 02/05/20 02/05/20 History sublingual tablet Allergies Allergy/AdvReac Type Severity Reaction Status Date / Time morphine [MORPHINE] Allergy Unknown Verified 04/22/20 10:52 Penicillins [PENICILLINS] Allergy Unknown Verified 04/22/20 10:52 Exam I & O for Last 24 hours: Intake & Output 05/10/20 05/11/20 05/12/20 05/13/20 11:59 11:59 11:59 11:59 Weight 143 lb - *Routine HEENT Exam Head: Present: normocephalic Eye: Absent: scleral injection ENT: Present: mucous membranes moist - *Routine Neck Exam Present: supple. Absent: lymphadenopathy - *Routine Respiratory Exam Present: CTA bilaterally - *Routine Cardiovascular Exam Present: RRR - *Routine Abdominal Exam Present: soft. Absent: tenderness - *Routine Extremities Exam Present: edema (2+) - *Routine Skin Exam Present: warm. Absent: rash - *Routine Neurological Exam Present: alert, oriented X3 - Additional findings Additional findings: cervix complete with BBOW, +1 station Assessment and Plan (1) 36 weeks gestation of Status: Acute Category: Medical Code(s): Z3A.36 - 36 weeks gestation of (2) Active labor Status: Acute Category: Medical Code(s): O60.10X0 - labor with delivery, unspecified trimester, not applicable or unspecified (3) IUGR (intrauterine growth restriction) Problem details: 10% Status: Acute Category: Medical (4) complicated by subutex maintenance, antepartum Status: Acute Category: Medical Code(s): O99.320 - Drug use complicating , unspecified trimester; F11.20 - Opioid dependence, uncomplicated; 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
--- NOTE | 2020-05-12 16:21 | P.PCN_ITS ---
- Delivery Note Delivery Date:: 05/12/20 Delivery Time:: 15:21 Anesthesia Type: None Was labor medically induced?: No Gestational age (weeks): 36 delivered prior to 39 weeks?: Yes Justification for early elective delivery:: Active Labor, Premature ROM Infant Gender: Male at 1 minute: 3 at 5 minutes: 5 (10 minute : 8) AF:: thick meconium Delivery Procedure:: Precipitous spontaneous vaginal delivery of liveborn male over intact perineum. Patient admitted in active labor with cervix completely dilated Shortly after admission she had spontaneous rupture of membranes with immediate delivery; thick meconium noted in amniotic fluid No nuchal cord; no shoulder dystocia present with delivery taken immediately to warmer following delivery for alliance consultant assessment and medical management Various interventions were taken, including PPV--please see alliance consultant note for complete details Apgars: 3 (1 min) 5 (5 min) 8 (10 min) Placenta spontaneously expressed and examined; noted to be complete/intact. Vulva, vagina, and cervix inspected; bilateral periurethral lacerations present but not actively bleeding No repair necessary EBL: 300 cc All sponge/needle/instrument counts correct at conclusion of procedure Pitocin 10 mU IM given immediately following delivery because patient did not yet have IV access Disposition: Mom/baby stable to recovery in LDRP Laceration:: labial Placental Delivery Description: Spontaneous
--- NOTE | 2020-05-12 16:27 | HMH.PHAINT ---
verified home medication list with [facility]
[2020-05-12 17:29] LABS: Basophils % 0.1 % (0.1-2.0); Hemoglobin 9.6 g/dL (12.2-16.2); Lymphocytes # 1.1 K/mm3 (0.7-4.5); Mean Corpuscular Volume 78.2 fl (81-99); Monocytes # 0.2 K/mm3 (0.1-1.0)
[2020-05-12 17:39] LABS: Hematocrit 30.8 % (37.0-47.0); Lymphocytes % 6.1 % (10-50); Mean Corpuscular HGB Conc 31.2 g/dL (31.8-35.4); Mean Corpuscular Hemoglobin 24.4 pg (27.0-31.2); Mean Platelet Volume 9.5 fl (7.4-10.4); Monocytes % 1.4 % (1.7-9.3); Neutrophils # 16.3 K/mm3 (1.8-7.8); Neutrophils % 92.4 % (37.0-80.0); Platelet Count 235 K/mm3 (142-424); Red Blood Count 3.94 M/mm3 (4.20-5.40); Red Cell Distribution Width 15.5 % (11.5-17.5); White Blood Count 17.6 K/mm3 (4.8-10.8)
[2020-05-12 17:40] LABS: MANUAL DIFFERENTIAL MANUAL DIFFERENTIAL (MANUAL DIFF)
[2020-05-12 17:54] LABS: Coronavirus 19 IgG Antibody Positive (Negative); Coronavirus 19 IgM Antibody Negative (Negative)
[2020-05-12 19:49] LABS: Lymphocytes % 4 % (10-50); Monocytes % 1 % (2-9); Neutrophils % 95 % (42-76); Platelet Estimate Normal; Total Cells Counted 100
[2020-05-12 19:50] LABS: Anisocytosis 1+; Hypochromasia 1+; Microcytosis 1+
[2020-05-12 22:07] LABS: Basophils % 0.1 % (0.1-2.0); Hematocrit 32.1 % (37.0-47.0); Lymphocytes # 1.2 K/mm3 (0.7-4.5); Lymphocytes % 6.7 % (10-50); Mean Corpuscular HGB Conc 31.1 g/dL (31.8-35.4); Mean Corpuscular Hemoglobin 24.3 pg (27.0-31.2); Mean Platelet Volume 9.2 fl (7.4-10.4); Monocytes # 0.2 K/mm3 (0.1-1.0); Monocytes % 1.2 % (1.7-9.3); Neutrophils # 15.8 K/mm3 (1.8-7.8); Platelet Count 237 K/mm3 (142-424); Red Blood Count 4.11 M/mm3 (4.20-5.40); Red Cell Distribution Width 15.6 % (11.5-17.5); White Blood Count 17.2 K/mm3 (4.8-10.8)
[2020-05-13 04:27] LABS: Microscopic, Urine URINE MICROSCOPIC (MICROSCOPIC)
[2020-05-13 04:33] LABS: Appearance,Urine CLOUDY (Clear); Blood, Urine 3+ (Negative); Color,Urine RED (Yellow); Glucose,Urine (UA) Negative (Negative); Ketones,Urine Negative (Negative); Leukocyte Esterase,Urine 2+ (Negative); Nitrate,Urine POSITIVE (Negative); Protein,Urine 2+ (Negative); Specific Gravity, Urine 1.025 (1.005-1.030)
[2020-05-13 04:34] LABS: Bilirubin,Urine Negative (Negative)
[2020-05-13 04:44] LABS: Amphetamine/Metha Screen,Urine Negative ng/ml (<1000); Barbiturates Screen,Urine Negative ng/ml (<200)
[2020-05-13 04:45] LABS: Benzodiazepines Screen,Urine Negative ng/ml (<200)
[2020-05-13 04:46] LABS: Cannabinoid Screen,Urine Positive ng/ml (<50); Cocaine Screen,Urine Negative ng/ml (<300)
[2020-05-13 04:47] LABS: Methadone Screen,Urine Negative ng/ml (<300); Opiate Screen,Urine Negative ng/ml (<300)
[2020-05-13 04:48] LABS: Phencyclidine Screen,Urine Negative ng/ml (<25)
[2020-05-13 05:24] LABS: Bacteria,Urine 1+ /lpf; RBC,Urine TNTC #/hpf (0-3)
[2020-05-13 07:31] LABS: Hematocrit 30.9 % (37.0-47.0); Hemoglobin 9.6 g/dL (12.2-16.2)
--- NOTE | 2020-05-13 09:57 | SW/DCPLANNER ---
I have received a consult for this patient regarding: +THC, subutex, del transferred to . was born and transferred yesterday. I have received a phone call from Lucia Ferreira, Hands And Dial Inspector with NICU. Lucia has requested mothers drug screens and information regarding Subutex Clinic. Patient is currently enrolled at [facility] in [place]. This information along with drug screens have been provided to Lucia Ferreira. Lucia has also stated that she will make report to [facility] regarding this case. Lucia Ferreira ( NICU Hands And Dial Inspector) phone: [phone] fax: [phone]
--- NOTE | 2020-05-13 11:06 | HMH.DCSUM ---
General - General Admission date:: 05/12/20 Discharge date: 05/13/20 HPI HPI: @ 36 3 presented with active labor cervix completely dilated with BBOW upon presentation to triage Admitted with spontaneous precipitous delivery before IV access was even achieved complicated by chronic subutex use (16mg daily), tobacco abuse, hepatitis C and IUGR of 10%. Previous delivered approximately 35 wks for IUGR 1% Hospital Course Hospital Course: Precipitous vaginal delivery immediately after admission course uncomplicated Tolerating regular diet, ambulating and voiding Infant transferred to last night with withdrawal symptoms; mother requesting discharge kelley in order to be with infant declines pain meds at discharge Objective Vital signs: Temp Pulse Resp BP Pulse Ox 97.8 F 95 H 20 116/78 100 05/12/20 15:10 05/12/20 15:10 05/12/20 15:10 05/12/20 15:10 05/12/20 15:10 Narrative: CONSTITUTIONAL: no acute distress HEENT: mucous membranes moist PULMONARY: breathing unlabored without audible wheezes CV: no tachycardia or visible JVD; normal LE peripheral pulses ABD: soft, NT/ND, no guarding : fundus firm at/below umbilicus SKIN: no visible rash or lesions EXT: 2+ edema LEs NEURO: alert/oriented, no altered mental status PSYCH: appropriate mood and demeanor without visible anxiety/depression Results Labs on day of discharge: Labs from last 24 hours 05/13/20 05/13/20 05/13/20 06:48 03:20 03:20 WBC RBC Hgb 9.6 L Hct 30.9 L MCV MCH MCHC RDW Plt Count MPV Neut % (Auto) Lymph % (Auto) Jackson % (Auto) Eos % (Auto) Baso % (Auto) Neut # (Auto) Lymph # (Auto) Jackson # (Auto) Eos # (Auto) Baso # (Auto) Total Counted Neutrophils % (Manual) Lymphocytes % (Manual) Monocytes % (Manual) Platelet Estimate Hypochromasia Anisocytosis Microcytosis Urine Color Red Urine Appearance Cloudy Urine pH 6.0 Ur Specific [place] 1.025 Urine Protein 2+ Urine Glucose (UA) Negative Urine Ketones Negative Urine Blood 3+ Urine Nitrate Positive Urine Bilirubin Negative Urine Urobilinogen 1.0 Ur Leukocyte Esterase 2+ A Urine RBC Tntc Urine WBC 5-10 Urine Bacteria 1+ Urine Opiates Screen Negative Urine Methadone Screen Negative Ur Barbituates Screen Negative Ur Phencyclidine Scrn Negative Ur Amphetamines Screen Negative U Benzodiazepines Scrn Negative Urine Cocaine Screen Negative U Marijuana (THC) Screen Positive H SARS-CoV-2 IgG Ab (Rapid) SARS-CoV-2 IgM Ab (Rapid) Blood Type Antibody Screen 05/12/20 05/12/20 05/12/20 21:24 17:00 17:00 WBC 17.2 H RBC 4.11 L Hgb 10.0 L Hct 32.1 L MCV 78.0 L MCH 24.3 L MCHC 31.1 L RDW 15.6 Plt Count 237 MPV 9.2 Neut % (Auto) 92.0 H Lymph % (Auto) 6.7 L Jackson % (Auto) 1.2 L Eos % (Auto) 0.0 L Baso % (Auto) 0.1 Neut # (Auto) 15.8 H Lymph # (Auto) 1.2 Jackson # (Auto) 0.2 Eos # (Auto) 0.0 Baso # (Auto) 0.0 Total Counted Neutrophils % (Manual) Lymphocytes % (Manual) Monocytes % (Manual) Platelet Estimate Hypochromasia Anisocytosis Microcytosis Urine Color Urine Appearance Urine pH Ur Specific [place] Urine Protein Urine Glucose (UA) Urine Ketones Urine Blood Urine Nitrate Urine Bilirubin Urine Urobilinogen Ur Leukocyte Esterase Urine RBC Urine WBC Urine Bacteria Urine Opiates Screen Urine Methadone Screen Ur Barbituates Screen Ur Phencyclidine Scrn Ur Amphetamines Screen U Benzodiazepines Scrn Urine Cocaine Screen U Marijuana (THC) Screen SARS-CoV-2 IgG Ab (Rapid) Positive A SARS-CoV-2 IgM Ab (Rapid) Negative Blood Type A Positive Antibody Screen
[2020-05-14 09:09] LABS: HIV Screen 4th Generation wRfx Non Reactive (Non Reactive)
[2020-05-14 10:42] LABS: Hepatitis B Surface Antigen Negative (Negative); Rubella Antibodies, IgG 2.31 index (Immune >0.99)
[2020-05-14 13:02] LABS: Rapid Plasma Reagin Ab Titer Non Reactive (NonRea<1:1)
[2020-05-17 10:30] LABS: Buprenorphine, Urine Positive (Cutoff=10)
== END 2020-05-13 12:05 | disposition home or self-care (01) | DRG 807 ==
LOC: OBOUT 15:12 → OB 15:12
PROVIDERS: Admitting Provider Obstetrics & Gynecology; PCP Internal Medicine; Visit Provider Obstetrics & Gynecology
DX: O36.5930 Maternal care for other known or suspected poor fetal growth, third trimester, not applicable or unspecified (principal); Z37.0 Single live birth; Z3A.36 36 weeks gestation of pregnancy; O62.3 Precipitate labor; F11.21 Opioid dependence, in remission; O99.320 Drug use complicating pregnancy, unspecified trimester; O99.330 Smoking (tobacco) complicating pregnancy, unspecified trimester; F17.210 Nicotine dependence, cigarettes, uncomplicated; O98.419 Viral hepatitis complicating pregnancy, unspecified trimester; B19.20 Unspecified viral hepatitis C without hepatic coma
CPT/HCPCS: 59409; 80305; 80307; 81001; 85007; 85014; 85018; 85025; 86328; 86592; 86762; 86850; 87086; 87340; J0571

== ENCOUNTER → 2020-05-17 17:31 | Outpatient (CLI) | payer OTHER, SELFPAY ==
[2020-05-19 13:17] LABS: Covid-19 Nasal PCR Sendout Lex Not Detected
== END ==
PROVIDERS: PCP Internal Medicine; Visit Provider Internal Medicine
DX: Z03.818 Encounter for observation for suspected exposure to other biological agents ruled out (principal)
CPT/HCPCS: U0004

== ENCOUNTER → 2020-05-26 09:56 | Outpatient (CLI) | payer OTHER, SELFPAY ==
--- NOTE | 2020-05-26 | CA_ITS ---
APPROVED REPORT Bilateral Lower Extremity Venous Study for DVT. Stretching Press Operator: RT Viviane(R) Indications Lower Extremity Pain: Bilateral Lower Extremity Edema: Bilateral NATHALY LE EDEMA X SEVERAL WKS, 2 WKS POST Vein Imaging CFV (R): compressive, spontaneous, phasic, augmentation FEM (R): compressive, spontaneous, phasic, augmentation POP (R): compressive, spontaneous, phasic, augmentation PTV (R): Compressible GSV (R): Compressible Peroneals (R):Compressible GAS (R): Compressible CFV (L): compressive, spontaneous, phasic, augmentation FEM (L): compressive, spontaneous, phasic, augmentation POP (L): compressive, spontaneous, phasic, augmentation PTV (L): Compressible GSV (L): Compressible Peroneals (L):Compressible GAS (L): Compressible Findings Study suggests no evidence of DVT of the bilateral lower extremites. Study suggests no evidence of SVT of the bilateral lower extremites. Conclusion Study suggests no evidence of DVT of the bilateral lower extremites. Study suggests no evidence of SVT of the bilateral lower extremites. Electronically signed by : Mina Mehta MD 05/26/2020 16:12:20
== END ==
PROVIDERS: PCP Internal Medicine; Visit Provider Internal Medicine
DX: M79.605 Pain in left leg (principal); M79.604 Pain in right leg; R60.0 Localized edema
CPT/HCPCS: 93970

== ENCOUNTER → 2020-09-29 17:52 | Outpatient (CLI) | payer OTHER, SELFPAY ==
[2020-09-29 18:40] LABS: Amphetamine/Metha Screen,Urine Negative ng/ml (<1000); Barbiturates Screen,Urine Negative ng/ml (<200)
[2020-09-29 18:41] LABS: Benzodiazepines Screen,Urine Negative ng/ml (<200)
[2020-09-29 18:42] LABS: Cannabinoid Screen,Urine Positive ng/ml (<50); Cocaine Screen,Urine Negative ng/ml (<300)
[2020-09-29 18:43] LABS: Methadone Screen,Urine Negative ng/ml (<300); Opiate Screen,Urine Negative ng/ml (<300)
[2020-09-29 18:44] LABS: Phencyclidine Screen,Urine Negative ng/ml (<25)
== END ==
PROVIDERS: Visit Provider Internal Medicine
DX: F19.11 Other psychoactive substance abuse, in remission (principal)
CPT/HCPCS: 80305

== ENCOUNTER → 2021-02-02 20:47 | Outpatient (CLI) | payer OTHER, SELFPAY | PROVIDERS: PCP Internal Medicine; Visit Provider Internal Medicine | DX: Z20.822 Contact with and (suspected) exposure to COVID-19 (principal) | CPT/HCPCS: U0003 ==

== ENCOUNTER 2021-03-28 03:07 | Emergency (ER) | payer OTHER, SELFPAY ==
[2021-03-28 03:10] VITALS: BP 127/58; PULSE 96; RESP 16; TEMP 36.9; O2SAT 98; BMI 26.6
[2021-03-28 03:19] VITALS: BMI 27.4
--- NOTE | 2021-03-28 03:50 | HMH.EDSKAF ---
ED Disposition Clinical Impression: Cellulitis Qualifiers: Site of cellulitis: extremity Site of cellulitis of extremity: finger Laterality: right Qualified Code(s): L03.011 - Cellulitis of right finger Disposition: Home, Self-Care Condition on Discharge: Good Instructions: Cellulitis Additional Instructions: use meds and see pcp for follow up Prescriptions: Minocycline HCl [Minocycline HCl 100mg Tab*] 100 mg PO BID #20 tab Transmission Status: Pending to [facility] Referrals: Catarino Melton [Primary Care Provider] - - Critical Care Critical Care Time: No Attestation: On 03/28/21, the high probability of a clinically significant, sudden or life threatening deterioration of the following system(s) required my full and direct attention, intervention and personal management. The time I documented below is in addition to time spent performing reported procedures but includes the following listed in this critical care notation. Medical Decision Making - Medical Records Medical records reviewed: Yes: I reviewed the patient's medical records. - Ronald Inquiry Pt receiving controlled substance: No Vital Signs: 03/28/21 03:10 Temperature 98.4 F Temperature Source Oral Pulse Rate [Right] 96 H Respiratory Rate 16 Blood Pressure [Right Arm] 127/58 L Blood Pressure Mean [Right Arm] 81 02 Sat by Pulse Oximetry 98 Orders (Tests/Meds): ORDERS Category Date Time Status CRP [C-Reactive Protein] Stat Lab 03/28/21 03:19 Ordered Complete Blood Count Auto Diff Stat Lab 03/28/21 03:19 Ordered Comprehensive Metabolic Panel Stat Lab 03/28/21 03:19 Ordered Erythrocyte Sedimentation Rate Stat Lab 03/28/21 03:19 Ordered Procalcitonin Stat Lab 03/28/21 03:19 Ordered Medical Decision Narrative: has cellulitis no abscess Skin/Abscess/FB HPI - General Chief complaint: Skin/Abscess/Foreign Body Stated complaint: Abcess on rt hand pointer finger Time Seen by Provider: 03/28/21 03:30 Mode of Arrival: Ambulatory Source of Information: Patient, Medical Record Limitations: No Limitations Description of Symptoms (Recalled from ER Triage Doc. by RN): pt states on she remove glove off rt hand and notice a red area on rt pointer finger. - History of Present Illness HPI narrative: infection rt index finger with streaking MD complaint: other (skin infection) Onset (ago): day(s) Tetanus up to date: unsure Location: R hand Severity: moderate Associated symptoms: denies other symptoms Treatments prior to arrival: none - Related Data Home Medications Medication Instructions Recorded Confirmed gabapentin 600 mg tablet 600 mg PO QID tab 10/30/19 05/12/20 prenat.vits,jesús,mrf-wvnx-zwztx 1 tab PO DAILY 12/25/19 05/12/20 buprenorphine HCL [Subutex 8mg ODT 16 mg SL DAILY 05/12/20 05/12/20 *OB USE ONLY*] Previous Rx's Medication Instructions Recorded norethindrone 1 mg-ethinyl 1 tab PO DAILY #84 tab 11/22/20 estradiol 20 mcg (21)-iron 75 mg (7) tablet Minocycline HCl [Minocycline HCl 100 mg PO BID #20 tab 03/28/21 100mg Tab*] Allergies Allergy/AdvReac Type Severity Reaction Status Date / Time morphine [MORPHINE] Allergy Unknown Verified 04/22/20 10:52 Penicillins [PENICILLINS] Allergy Unknown Verified 04/22/20 10:52 [facility] History - Hepatitis A Screen Drug use history?: No High risk sexual behaviors?: No History of sexually transmitted infection?: No Currently employed?: No Childcare worker?: No Do you have indoor plumbing?: Yes Do you have electricity?: Yes Attestation statement:: This patient has been screened for Hepatitis A risk factors. I have reviewed the patient's past medical history: Yes Medical History: Denies:: Cancer, Diabetes Mellitus Type 1, Diabetes Mellitus Type 2, MRSA Other Medical History: Reports: Liver Disease Laterality Cases: Bilateral: Tonsillectomy Other Surgeries: Yes: Other. No: Amputation: No Fracture
[2021-03-28 04:06] VITALS: BP 127/58; PULSE 68; RESP 20; TEMP 37; O2SAT 98
== END 2021-03-28 04:11 | disposition home or self-care (01) ==
PROVIDERS: Emergency Provider Emergency Medicine; PCP Internal Medicine
DX: L03.011 Cellulitis of right finger (principal); F17.210 Nicotine dependence, cigarettes, uncomplicated; Z88.0 Allergy status to penicillin; Z88.5 Allergy status to narcotic agent
CPT/HCPCS: 87070; 87186; 87205; 99282

== ENCOUNTER → 2021-09-13 16:34 | Outpatient (CLI) | payer OTHER, SELFPAY ==
--- NOTE | 2021-09-13 | CA_ITS ---
FINAL REPORT CLINICAL HISTORY: .Itching redness with intermit edema FINDINGS: Color Doppler, duplex Doppler and compression sonography of the bilateral lower extremities was performed. There is no evidence of deep venous thrombosis from the level of the groin to the calf. The deep veins are patent and compressible. IMPRESSION: No evidence of deep venous thrombosis bilateral lower extremities. Reviewed, Interpreted and Dictated by Sánchez Kohler III, MD Transcribed by Bianca Salazar Authenticated by Sánchez Kohler III, MD on 09/14/2021 07:48:[address] [facility]
== END ==
PROVIDERS: PCP Internal Medicine; Visit Provider Internal Medicine
DX: M79.604 Pain in right leg (principal); M79.605 Pain in left leg; R60.0 Localized edema
CPT/HCPCS: 93970

== ENCOUNTER 2021-12-19 00:14 | Emergency (ER) | payer OTHER, SELFPAY ==
[2021-12-19 00:14] VITALS: BP 107/57; PULSE 75; RESP 16; TEMP 36.6; O2SAT 99; BMI 31.6
--- NOTE | 2021-12-19 00:27 | HMH.EDMCLR ---
ED Disposition Clinical Impression: Medical clearance for incarceration Disposition: Home, Self-Care Condition on Discharge: Good Instructions: DI for Substance Use Disorder Additional Instructions: see pcp for follow up Referrals: Catarino Melton MD [Primary Care Provider] - - Critical Care Critical Care Time: No Attestation: On 12/19/21, the high probability of a clinically significant, sudden or life threatening deterioration of the following system(s) required my full and direct attention, intervention and personal management. The time I documented below is in addition to time spent performing reported procedures but includes the following listed in this critical care notation. Medical Decision Making - Medical Records Medical records reviewed: Yes: I reviewed the patient's medical records. - Ronald Inquiry Pt receiving controlled substance: No Vital Signs: 12/19/21 00:14 Temperature 97.9 F Temperature Source Oral Pulse Rate [Right] 75 Respiratory Rate 16 Blood Pressure [Right Arm] 107/57 L Blood Pressure Mean [Right Arm] 73 02 Sat by Pulse Oximetry 99 Medical Clearance HPI - General Chief complaint: Medical Clearance Stated complaint: medical clearance Time Seen by Provider: 12/19/21 00:27 Mode of Arrival: Ambulatory Source of Information: Patient, Medical Record Limitations: No Limitations Description of Symptoms (Recalled from ER Triage Doc. by RN): pt here for medical clerance and has no c/o - History of Present Illness HPI Narrative: pt w/o specific c/o MD complaint: medical clearance requested Onset (ago): hour(s) Reason for Medical Clearance: medical condition Traumatic Symptoms: denies traumatic injury Associated Symptoms: denies other symptoms Treatments Prior to Arrival: none Home medications: Home Medications Medication Instructions Recorded Confirmed gabapentin 600 mg tablet 600 mg PO QID tab 10/30/19 05/12/20 prenat.vits,jesús,lvn-ktgk-fdxst 1 tab PO DAILY 12/25/19 05/12/20 buprenorphine HCL [Subutex 8mg ODT 16 mg SL DAILY 05/12/20 05/12/20 *OB USE ONLY*] Previous Rx's Medication Instructions Recorded norethindrone 1 mg-ethinyl 1 tab PO DAILY #84 tab 11/22/20 estradiol 20 mcg (21)-iron 75 mg (7) tablet Minocycline HCl [Minocycline HCl 100 mg PO BID #20 tab 03/28/21 100mg Tab*] Allergies/Adverse reactions: Allergies Allergy/AdvReac Type Severity Reaction Status Date / Time morphine [MORPHINE] Allergy Unknown Verified 04/22/20 10:52 Penicillins [PENICILLINS] Allergy Unknown Verified 04/22/20 10:52 [facility] History - Hepatitis A Screen Attestation statement:: This patient has been screened for Hepatitis A risk factors. I have reviewed the patient's past medical history: Yes Medical History: Denies:: Cancer, Diabetes Mellitus Type 1, Diabetes Mellitus Type 2, MRSA Other Medical History: Reports: Liver Disease Laterality Cases: Bilateral: Tonsillectomy Other Surgeries: Yes: Other. No: Amputation: No Fractures: No Comment: 2004-tonsils - Social History Smoking Status: Current every day smoker Tobacco Type: cigarettes # Packs/Day (cigarettes): 1 #Yrs smoked (if former smoker): 10 Alcohol Intake: never Substance Use Type: former substance user Occupational Status: employed Housing: apartment Household Members: significant other Family Hx:: Hypertension, Diabetes, Stroke, Heart Attack ROS Obtained: Yes All systems reviewed & no additional complaints - Constitutional Constitutional: Denies fever(s) - Eyes Eyes: Denies change in vision - ENT Ears, Nose, Mouth, and Throat: Denies sore throat - Cardiovascular Cardiovascular: Denies chest pain - Respiratory Respiratory: Denies shortness of breath - Gastrointestinal Gastrointestingal: Denies: abdominal pain - Genitourinary Female Genitourinary: Denies hematuria - Musculoskeletal Musculoskeletal: Denies joint pain - Integumentary/Breasts Skin/Breast:
[2021-12-19 00:36] VITALS: BP 107/57; PULSE 75; RESP 16; TEMP 36.6; O2SAT 99
== END 2021-12-19 00:40 | disposition home or self-care (01) ==
PROVIDERS: Emergency Provider Emergency Medicine; PCP Internal Medicine
DX: Z02.89 Encounter for other administrative examinations (principal)
CPT/HCPCS: 99282

== ENCOUNTER 2022-03-29 16:38 | Emergency (ER) | payer OTHER, SELFPAY ==
[2022-03-29 16:58] VITALS: BP 123/75; PULSE 91; RESP 19; TEMP 36.7; O2SAT 99; BMI 31.4
--- NOTE | 2022-03-29 17:08 | EXP.UTC ---
Discharge Plan Disposition Patient Disposition: Home, Self-Care Condition: Good Prescriptions Prescriptions: No Action gabapentin 600 mg tablet 600 mg PO QID prenat.vits,jesús,oqy-fekh-keyck Tablet 1 tab PO DAILY norethindrone-e.estradiol-iron [06/30 (28)] 1 mg-20 mcg (21)/75 mg (7) tablet 1 tab PO DAILY Qty: 84 6RF buprenorphine HCl 8 MG tablet, sublingual 16 mg SL DAILY Label Comments: pt. is in [facility] clinic Rx Instructions: verified with [facility] minocycline 100 MG tablet 100 mg PO BID Qty: 20 0RF Referrals Follow up/Referrals: Catarino Melton MD [Primary Care Provider] - See instructions Activity Restrictions/Add. Instructions Additional Instructions/Restrictions: *Monitor Temp, Over the counter Motrin or Tylenol as directed/as needed Tylenol every 4 hours and Motrin every 6 hours (as long as your family doctor has told you that you can take it) for fever or pain. and straight to ER if unable to lower temp less than 101.0 after medication given *Warm salt water gargles may help to soothe the throat *Throat Lozenges? *Warm fluids like tea with honey may help to soothe the throat? *Sleep elevated *Humidifier/Vaporizer Follow up IMMEDIATELY for new or worsening symptoms or no Noticeable improvement over the next 48-72 hours. 911 for difficulty breathing or swallowing Clinical Impressions Clinical Impression: Viral upper respiratory tract infection with cough Stand Alone Forms Stand Alone Forms: Work/School Release Instructions Patient Instructions: DI for Viral Upper Respiratory Infection -- Adult Discharge ED Provider: Camilla Hayes [facility] HPI General Stated complaint: congestion, runny nose, cough Time Seen by Provider: 03/29/22 17:08 History of Present Illness Provider Complaint: Patient states that her boyfriend recently tested positive for Rhino virus States that she has been having runny nose and congestion States that she didnt feel well this morning so she didnt go to work and had to come in to get a Dr Note Related Data Home Medications Medication Instructions Recorded Confirmed gabapentin 600 mg tablet 600 mg PO QID NERVE DAMAGE 10/30/19 05/12/20 prenat.vits,jesús,jeh-ujdf-eeptj 1 tab PO DAILY Supplement 12/25/19 05/12/20 buprenorphine HCl 8 mg sublingual 16 mg SL DAILY drug addiction 05/12/20 05/12/20 tablet Previous Rx's Medication Instructions Recorded norethindrone 1 mg-ethinyl 1 tab PO DAILY #84 tabs 11/22/20 estradiol 20 mcg (21)-iron 75 mg (7) tablet (06/30 (28)) minocycline 100 mg tablet 100 mg PO BID #20 tabs 03/28/21 Allergies Allergy/AdvReac Type Severity Reaction Status Date / Time morphine [MORPHINE] Allergy Unknown Verified 04/22/20 10:52 Penicillins [PENICILLINS] Allergy Unknown Verified 04/22/20 10:52 [facility] Social History Smoking Status: Current every day smoker tobacco type: cigarettes packs per day: 1 second hand exposure: Yes alcohol intake: never substance use type: former substance user current occupational status: employed Travel in the last 8 weeks: None household members: significant other housing: apartment 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 current occupational exposures/hazards: Yes ROS Obtained: Yes All systems reviewed & no additional complaints except as documented and Yes Systems reviewed as appropriate & no additional complaints except as documented Constitutional Constitutional: Reports system reviewed and no additional complaints, except as documented and Reports as per HPI ENT Ears, Nose, Mouth, and Throat: Reports system reviewed and no additional complaints, except as documented, Reports as per HPI, Reports nasal congestion and Reports nasal discharge Cardiovascular Cardiovascular: Reports system reviewed and no additional complaints, except as documented and Reports as per HPI Respiratory Respiratory:
[2022-03-29 17:20] VITALS: BP 123/75; PULSE 91; RESP 19; TEMP 36.7; O2SAT 99
== END 2022-03-29 17:20 | disposition home or self-care (01) ==
PROVIDERS: Emergency Provider Nurse Practitioner; PCP Internal Medicine
DX: J06.9 Acute upper respiratory infection, unspecified (principal)
CPT/HCPCS: 99212; G0463

== ENCOUNTER 2022-06-05 17:41 | Emergency (ER) | payer OTHER, SELFPAY ==
--- NOTE | 2022-06-05 19:20 | EXP.UTC ---
Discharge Plan Disposition Patient Disposition: Home, Self-Care Condition: Good Prescriptions Prescriptions: No Action gabapentin 600 mg tablet 600 mg PO QID prenat.vits,jesús,tsp-xvlj-ibvwe Tablet 1 tab PO DAILY norethindrone-e.estradiol-iron [06/30 ()] 1 mg-20 mcg (21)/75 mg (7) tablet 1 tab PO DAILY Qty: 84 6RF buprenorphine HCl 8 MG tablet, sublingual 16 mg SL DAILY Label Comments: pt. is in [facility] clinic Rx Instructions: verified with [facility] minocycline 100 MG tablet 100 mg PO BID Qty: 20 0RF Referrals Follow up/Referrals: Catarino Melton MD [Primary Care Provider] - See instructions Activity Restrictions/Add. Instructions Additional Instructions/Restrictions: Drink plenty of fluids. Take tylenol for pain or fever. Follow up with your regular doctor. GO TO THE ER FOR ANY WORSENING SYMPTOMS Clinical Impressions Clinical Impression: Acute viral syndrome, Stand Alone Forms Stand Alone Forms: Work/School Release Instructions Patient Instructions: DI for Viral Syndrome Discharge ED Provider: Jasen Stevens [facility] General Stated complaint: sore throat, fever Time Seen by Provider: 06/05/22 19:19 History of Present Illness Provider Complaint: She states that for the past 2 days she has had body aches, chills, chest congestion and a cough. She is 5 months . Related Data Home Medications Medication Instructions Recorded Confirmed gabapentin 600 mg tablet 600 mg PO QID NERVE DAMAGE 10/30/19 05/12/20 prenat.vits,jesús,edx-ywuw-vortu 1 tab PO DAILY Supplement 12/25/19 05/12/20 buprenorphine HCl 8 mg sublingual 16 mg SL DAILY drug addiction 05/12/20 05/12/20 tablet Previous Rx's Medication Instructions Recorded norethindrone 1 mg-ethinyl 1 tab PO DAILY #84 tabs 11/22/20 estradiol 20 mcg (21)-iron 75 mg (7) tablet (06/30 (28)) minocycline 100 mg tablet 100 mg PO BID #20 tabs 03/28/21 Allergies Allergy/AdvReac Type Severity Reaction Status Date / Time morphine [MORPHINE] Allergy Unknown Verified 06/05/22 19:36 Penicillins [PENICILLINS] Allergy Unknown Verified 06/05/22 19:36 [facility] Disclaimer: The information contained in this section may have been updated after the patient was seen, as this information can be updated by other users. 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 current occupational exposures/hazards: Yes ROS Obtained: Yes All systems reviewed & no additional complaints except as documented Constitutional Constitutional: Denies chills and Denies fever(s) Eyes Eyes: Denies eye discharge ENT Ears, Nose, Mouth, and Throat: Reports as per HPI Cardiovascular Cardiovascular: Denies chest pain Respiratory Respiratory: Denies chest congestion and Reports cough Gastrointestinal Gastrointestingal: Reports nausea; Denies abdominal pain, constipation, cramping, diarrhea or vomiting Musculoskeletal Musculoskeletal: Denies arthralgias Integumentary/Breasts Skin/Breast: Denies rash Neurologic Neurologic: Denies paresthesias Physical Exam General General appearance: alert and in no apparent distress Head Head exam: atraumatic, normocephalic and normal inspection Eye Eye exam: Present normal appearance, PERRL and EOMI ENT ENT exam: Present mucous membranes moist and normal external ear exam Expanded ENT Exam TM/Canal exam: Bilateral TM: erythema and bulging Nose exam: Absent sinus tenderness Mouth exam: Present normal external inspection; Absent drooling Teeth exam: Present normal inspe
[2022-06-05 19:34] VITALS: BP 124/80; PULSE 85; RESP 16; TEMP 37; O2SAT 100; BMI 33.0
[2022-06-05 19:35] LABS: UTC Strep Screen (Rapid) Negative (Negative)
[2022-06-05 19:36] LABS: UTC Influenza A Antigen Negative (Negative); UTC Influenza B Antigen Negative (Negative)
[2022-06-05 19:53] VITALS: BP 124/80; PULSE 85; RESP 16; TEMP 37
[2022-06-05 20:04] LABS: Adenovirus,PCR Not Detected (NotDetected); Bordetella Pertussis Not Detected (NotDetected); Chlamydophila Pneumoniae, PCR Not Detected (NotDetected); Coronavirus 19, PCR Not Detected (NotDetected); Coronavirus 229E Not Detected (NotDetected); Coronavirus NL63 Not Detected (NotDetected); Coronavirus OC43 Not Detected (NotDetected); Coronovirus HKU1,PCR Not Detected (NotDetected); Human Metapneumovirus Not Detected (NotDetected); Influenza A, PCR Not Detected (NotDetected); Influenza AH1, 2009 Not Detected (NotDetected); Influenza AH1, PCR Not Detected (NotDetected); Influenza AH3,PCR Not Detected (NotDetected); Influenza B, PCR Not Detected (NotDetected); Mycoplasma Pneumoniae, PCR Not Detected (NotDetected); Parainfluenza 1, PCR Not Detected (NotDetected); Parainfluenza 2, PCR Not Detected (NotDetected); Parainfluenza 3, PCR Not Detected (NotDetected); Parainfluenza 4, PCR Not Detected (NotDetected); Respiratory Syncytial Virus Not Detected (NotDetected); Rhinovirus/Enterovirus Not Detected (NotDetected)
== END 2022-06-05 19:53 | disposition home or self-care (01) ==
PROVIDERS: Emergency Provider Nurse Practitioner Family; PCP Internal Medicine
DX: J02.9 Acute pharyngitis, unspecified (principal); R50.9 Fever, unspecified; B34.9 Viral infection, unspecified
CPT/HCPCS: 87581; 87632; 87798; 87804; 87880; 99212; C9803; G0463; U0003; U0005

== ENCOUNTER → 2022-11-23 10:10 | Outpatient (CLI) | payer OTHER, SELFPAY ==
[2022-11-23 10:37] LABS: Basophils % 0.6 % (0.1-2.0); Eosinophils # 0.2 K/mm3 (0.0-0.4); Eosinophils % 2.4 % (0.1-12.0); Lymphocytes # 1.9 K/mm3 (0.7-4.5); Lymphocytes % 28.1 % (10-50); Mean Corpuscular HGB Conc 30.3 g/dL (31.8-35.4); Mean Corpuscular Volume 92.5 fl (81-99); Mean Platelet Volume 7.8 fl (7.4-10.4); Monocytes # 0.3 K/mm3 (0.1-1.0); Monocytes % 4.6 % (1.7-9.3); Neutrophils # 4.4 K/mm3 (1.8-7.8); Neutrophils % 64.3 % (37.0-80.0); Platelet Count 258 K/mm3 (142-424); Red Blood Count 4.65 M/mm3 (4.20-5.40); White Blood Count 6.8 K/mm3 (4.8-10.8)
[2022-11-23 12:39] LABS: Alanine Aminotransferase 59 U/L (12-78); Albumin/Globulin Ratio 1.5 (1.1-1.8); Alkaline Phosphatase 63 U/L (38-126); Anion Gap 13.6 mEq/L (5-15); Aspartate Amino Transferase 54 U/L (14-36); Bilirubin,Total 0.4 mg/dl (0.2-1.3); Blood Urea Nitrogen 14 mg/dl (7-17); Calcium 8.7 mg/dl (8.4-10.2); Carbon Dioxide 25 mmol/L (22.0-30.0); Chloride 106 mmol/L (98-107); Estimated Glomerular Filt Rate 99 ml/min (>60); GFR (African American) 120 ML/MIN (>60); Globulin 2.6 g/dL (1.3-3.2); Glucose 74 mg/dl (74-100); Potassium 4.6 mmoL/L (3.5-5.1); Sodium 140 mmol/L (136-145); Total Protein,Serum 6.6 g/dl (6.3-8.2)
== END ==
PROVIDERS: PCP Internal Medicine; Visit Provider Internal Medicine
DX: R74.01 Elevation of levels of liver transaminase levels (principal); B35.1 Tinea unguium; Z79.899 Other long term (current) drug therapy
CPT/HCPCS: 36415; 80053; 85025

== ENCOUNTER 2023-06-22 09:24 | Emergency (ER) | payer OTHER, SELFPAY ==
[2023-06-22 10:15] VITALS: BP 118/71; PULSE 92; RESP 20; TEMP 36.7; O2SAT 96; BMI 40.4
--- NOTE | 2023-06-22 10:25 | ED_ITS ---
Discharge Plan Disposition Patient Disposition: Home, Self-Care Condition: Good Prescriptions Prescriptions: New azithromycin [Zithromax] 250 mg tablet 250 mg PO UD DOSE PK Qty: 6 0RF Rx Instructions: Take two (2) tablets today, then one (1) tablet days #2 thru #5 No Action prenat.vits,jesús,qcg-uucm-pkemd Tablet 1 tab PO DAILY bupropion HCl 300 mg tablet extended release 24 hr 300 mg PO DAILY Referrals Follow up/Referrals: Catarino Melton MD [Primary Care Provider] - See instructions Activity Restrictions/Add. Instructions Additional Instructions/Restrictions: Drink plenty of fluids. Take tylenol for pain or fever. Take the medications as directed. Follow up with your is/it project manager physician. Follow up with your regular doctor. GO TO THE ER FOR ANY WORSENING SYMPTOMS Clinical Impressions Clinical Impression: Sinusitis, Stand Alone Forms Stand Alone Forms: Work/School Release Instructions Patient Instructions: DI for Sinusitis Discharge ED Provider: Jasen Stevens [facility] General Stated complaint: Pain in both ears, congstion Mode of Arrival: Ambulatory Source of Information: Patient Limitations: No Limitations Time Seen by Provider: 06/22/23 10:25 Description of Symptoms (Recalled from Triage Doc. by RN): PATIENT C/O BILATERAL EAR/JAW PAIN X 2 WEEKS, HEADACHE X 1 WEEK, AND SINUS CONGESTION THAT STARTED THIS MORNING HEENT Symptoms (Recalled from RN notes): Yes Resp Symptoms (Recalled from RN notes): No Skin Symptoms (Recalled from RN notes): No MS Symptoms (Recalled from RN notes): No Functional Status (Recalled from RN notes): WNL History of Present Illness Provider Complaint: She states that for the past 1 week she has had sinus congestion, sore throat, and ear pain. She has also had an intermittent headache. Related Data Home Medications Medication Instructions Recorded Confirmed prenat.vits,jesús,fih-ecfc-uboex 1 tab PO DAILY Supplement 12/25/19 06/22/23 bupropion HCl 300 mg 24 hr tablet, 300 mg PO DAILY 06/22/23 06/22/23 extended release Previous Rx's Medication Instructions Recorded azithromycin 250 mg tablet 250 mg PO UD DOSE PK #6 tabs 06/22/23 (Zithromax) Allergies Allergy/AdvReac Type Severity Reaction Status Date / Time morphine [MORPHINE] Allergy Unknown Verified 06/05/22 19:36 Penicillins [PENICILLINS] Allergy Unknown Verified 06/05/22 19:36 Worker's Comp Is this a Worker's Comp case?: No [facility] Disclaimer: The information contained in this section may have been updated after the patient was seen, as this information can be updated by other users. 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 current occupational exposures/hazards: Yes ROS Obtained: Yes All systems reviewed & no additional complaints except as documented Constitutional Constitutional: Reports chills, Denies fever(s) and Reports poor appetite Eyes Eyes: Reports system reviewed and no additional complaints, except as documented ENT Ears, Nose, Mouth, and Throat: Reports as per HPI Cardiovascular Cardiovascular: Reports system reviewed and no additional complaints, except as documented and Denies chest pain Respiratory Respiratory: Denies shortness of breath, Denies chest congestion, Reports cough, Denies stridor and Denies wheezing Gastrointestinal Gastrointestingal: Reports system reviewed and no additional complaints, except as documented; Denies abdominal pain, diarrhea or vomiting Musculoskeletal Musculoskeletal: Reports system reviewed and no additional complaints, except as documented and Denies arthralgias Integumentary/Breasts Skin/Breast: Reports system reviewed and no additional complaints, except as documented and Denies rash Neurologic Neurologic: Denies paresthesias Allergic/Immunologic Allergic/Immunologic: Denies wheezing Physical Exam General General appearance: alert and in no apparent distress Eye Eye exam: Present normal appearance, PERRL and EOMI ENT ENT exam: Present mucous membranes moist and normal external ear exam Expanded ENT Exam External ear exam: Present normal external inspection TM/Canal exam: Bilateral TM: erythema and bulging Nose exam: Absent sinus tenderness Nasal speculum exam: Bilateral: normal Mouth exam: Present normal external inspection; Absent drooling Teeth exam: Present normal inspection Throat exam: Present tonsillar erythema and tonsillomegaly Neck Neck exam: Present normal inspection, full ROM and trachea midline; Absent tenderness, lymphadenopathy or thyromegaly Chest Chest inspection: Present normal inspection and symmetric chest wall rise; Absent tenderness or rash Respiratory Respiratory exam: Present normal lung sounds bilaterally; Absent respiratory distress, wheezes, stridor or accessory muscle use Cardiovascular Cardiovascular exam: Present regular rate, normal rhythm and normal heart sounds Abdominal Exam Abdominal exam: Present soft; Absent distention, tenderness, guarding, rebound or rigidity Extremities Exam Extremities exam: Present normal inspection, full ROM and normal capillary refill; Absent tenderness or calf tenderness Back Exam Back exam: Present normal inspection and full ROM; Absent tenderness Neurological Exam Neurological exam: Present alert and oriented X3 Psychiatric Psychiatric exam: Present normal affect and normal mood Skin Skin exam: Present warm, dry, intact and normal color Lymphatic Lymphatic Findings: no adenopathy Medical Decision Making Medical Records Medical records reviewed: No I reviewed the patient's medical records. Ronald Inquiry Pt receiving controlled substance: No Vital Signs: 06/22/23 10:15 Temperature 98.1 F Temperature Source Oral Pulse Rate [Left Brachial] 92 H Respiratory Rate 20 Blood Pressure [Left Arm] 118/71 Blood Pressure Mean [Left Arm] 86 Blood Pressure Source [Left Arm] Automatic Cuff Blood Pressure Position [Left Arm] Sitting 02 Sat by Pulse Oximetry 96 Oxygen Delivery Method Room Air Lab Data Lab results reviewed: Yes I reviewed the patient's lab results.
[2023-06-22 10:30] VITALS: BP 118/71; PULSE 92; RESP 20; TEMP 36.7; O2SAT 96
== END 2023-06-22 10:41 | disposition home or self-care (01) ==
PROVIDERS: Emergency Provider Nurse Practitioner Family; PCP Internal Medicine
DX: J01.90 Acute sinusitis, unspecified (principal); H92.03 Otalgia, bilateral; R09.81 Nasal congestion; R07.0 Pain in throat; R51.9 Headache, unspecified
CPT/HCPCS: 99212; 99214; G0463

== ENCOUNTER 2023-07-27 09:54 | Outpatient (CLI) | payer OTHER, SELFPAY | END 2023-07-27 23:59 | LOC: LAB 09:56 | PROVIDERS: PCP Internal Medicine; Visit Provider Obstetrics & Gynecology | DX: Z13.1 Encounter for screening for diabetes mellitus (principal); Z3A.28 28 weeks gestation of pregnancy ==

== ENCOUNTER 2023-10-15 18:04 | Emergency (ER) | payer OTHER, SELFPAY ==
[2023-10-15 18:20] VITALS: BP 109/74; PULSE 71; RESP 18; TEMP 36.8; O2SAT 99; BMI 38.9
--- NOTE | 2023-10-15 18:40 | EXP.UTC ---
Discharge Plan Disposition Patient Disposition: Home, Self-Care Condition: Good Prescriptions Prescriptions: New clindamycin HCl 300 mg capsule 300 mg PO Q8H 10 Days Qty: 30 0RF ibuprofen [IBU] 800 mg tablet 800 mg PO TIDP PRN (Reason: Moderate Pain) Qty: 20 0RF No Action bupropion HCl 300 mg tablet extended release 24 hr 300 mg PO DAILY Referrals Follow up/Referrals: Catarino Melton MD [Primary Care Provider] - See instructions Activity Restrictions/Add. Instructions Additional Instructions/Restrictions: Take medication as prescribed Follow up with your Family Doctor if no improvement or any worsening of symptoms Use dental Balls as you was instructed in the [facility]\ Follow up with your Dentist as scheduled Clinical Impressions Clinical Impression: Dental infection Instructions Patient Instructions: DI for Tooth Abscess, Clindamycin Discharge ED Provider: Camilla Hayes [facility] [place] HPI General Stated complaint: Teeth hurting Mode of Arrival: Ambulatory Source of Information: Patient Limitations: No Limitations Time Seen by Provider: 10/15/23 18:40 Description of Symptoms (Recalled from Triage Doc. by RN): PATIENT C/O TOOTH PAIN (ALL TEETH) THAT STARTED TODAY HEENT Symptoms (Recalled from RN notes): Yes Resp Symptoms (Recalled from RN notes): No Skin Symptoms (Recalled from RN notes): No MS Symptoms (Recalled from RN notes): No Functional Status (Recalled from RN notes): WNL History of Present Illness Provider Complaint: Patient states that she has multiple broken and decaying teeth States that all her teeth have been hurting but worse in the back on the right and she has a dental appointment soon and they told her to come in and get antibiotics before her appointment Related Data Home Medications Medication Instructions Recorded Confirmed bupropion HCl 300 mg 24 hr tablet, 300 mg PO DAILY 06/22/23 10/15/23 extended release Previous Rx's Medication Instructions Recorded clindamycin HCl 300 mg capsule 300 mg PO Q8H 10 days #30 caps 10/15/23 ibuprofen 800 mg tablet (IBU) 800 mg PO TIDP PRN Moderate Pain 10/15/23 #20 tabs Allergies Allergy/AdvReac Type Severity Reaction Status Date / Time morphine [MORPHINE] Allergy Unknown Verified 06/05/22 19:36 Penicillins [PENICILLINS] Allergy Unknown Verified 06/05/22 19:36 Worker's Comp Is this a Worker's Comp case?: No [facility] Disclaimer: The information contained in this section may have been updated after the patient was seen, as this information can be updated by other users. 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 current occupational exposures/hazards: Yes ROS Obtained: Yes All systems reviewed & no additional complaints except as documented and Yes Systems reviewed as appropriate & no additional complaints except as documented Constitutional Constitutional: Reports system reviewed and no additional complaints, except as documented and Reports as per HPI Eyes Eyes: Reports system reviewed and no additional complaints, except as documented and Reports as per HPI ENT Ears, Nose, Mouth, and Throat: Reports system reviewed and no additional complaints, except as documented, Reports as per HPI and Reports dental pain Cardiovascular Cardiovascular: Reports system reviewed and no additional complaints, except as documented and Reports as per HPI Respiratory Respiratory: Reports system reviewed and no additional complaints, except as documented and Reports as per HPI Gastrointestinal Gastrointestingal: Reports system reviewed and no additional complaints, except as documented and as per HPI Physical Exam General General appearance: alert and in no apparent distress ENT ENT exam: Present mucous membranes moist Expanded ENT Exam Teeth exam: Present dental caries, fractured tooth # and gingival swelling Respiratory Respiratory exam: Present normal lung sounds bilaterally; Absent respiratory distress or wheezes Cardiovascular Cardiovascular exam: Present regular rate, normal rhythm and normal heart sounds Neurological Exam Neurological exam: Present alert, oriented X3 and normal gait Medical Decision Making Ronald Inquiry Pt receiving controlled substance: No Ronald was queried for this patient: No Vital Signs: 10/15/23 18:20 Temperature 98.3 F Temperature Source Oral Pulse Rate [Left Brachial] 71 Respiratory Rate 18 Blood Pressure [Left Arm] 109/74 L Blood Pressure Mean [Left Arm] 85 Blood Pressure Source [Left Arm] Automatic Cuff Blood Pressure Position [Left Arm] Sitting 02 Sat by Pulse Oximetry 99 Oxygen Delivery Method Room Air
[2023-10-15 18:52] VITALS: BP 109/74; PULSE 71; RESP 18; TEMP 36.8; O2SAT 99
== END 2023-10-15 18:53 | disposition home or self-care (01) ==
PROVIDERS: Emergency Provider Nurse Practitioner; PCP Internal Medicine
DX: K04.7 Periapical abscess without sinus (principal); F17.210 Nicotine dependence, cigarettes, uncomplicated
CPT/HCPCS: 99212; 99214; G0463

== ENCOUNTER 2023-10-16 16:36 | Outpatient (CLI) | payer OTHER, SELFPAY ==
[2023-10-27 10:21] LABS: Miscellaneous Test SCANNED IMAGE
== END 2023-10-16 23:59 | disposition home or self-care (01) ==
LOC: LAB 16:37
PROVIDERS: PCP Internal Medicine; Visit Provider Nurse Practitioner Family
DX: F90.0 Attention-deficit hyperactivity disorder, predominantly inattentive type (principal); Z79.899 Other long term (current) drug therapy

== ENCOUNTER 2024-03-06 12:58 | Emergency (ER) | payer OTHER, SELFPAY ==
[2024-03-06 13:17] VITALS: BP 114/58; PULSE 92; RESP 16; TEMP 36.6; O2SAT 97; BMI 36.9
--- NOTE | 2024-03-06 13:27 | ED_ITS ---
Discharge Plan Disposition Patient Disposition: Home, Self-Care Condition: Good Prescriptions Prescriptions: New azithromycin [Zithromax] 250 mg tablet 250 mg PO UD DOSE PK Qty: 6 0RF Rx Instructions: Take two (2) tablets today, then one (1) tablet days #2 thru #5 [id number] [Bromfed DM] 2-30-10 mg/5 mL Syrup 5 ml PO Q6H PRN (Reason: Cough) Qty: 240 0RF No Action lisdexamfetamine [Vyvanse] 30 mg capsule 30 mg PO DAILY ibuprofen 800 mg tablet 800 mg PO Q8H PRN (Reason: pain) Qty: 90 1RF Rx Instructions: Take with food or meal cephalexin 500 mg capsule 1,000 mg PO BID Qty: 40 0RF cyclobenzaprine 5 mg tablet 5 mg PO TID PRN (Reason: muscle spasm) Qty: 30 1RF Referrals Follow up/Referrals: Catarino Melton MD [Primary Care Provider] - See instructions Activity Restrictions/Add. Instructions Additional Instructions/Restrictions: Drink plenty of fluids. Take tylenol or ibuprofen for pain or fever. Take the medications as directed. Follow up with your regular doctor. GO TO THE ER FOR ANY WORSENING SYMPTOMS Clinical Impressions Clinical Impression: Sinusitis Instructions Patient Instructions: Sinusitis, DI for Sinusitis Print Language Print Language: Malay Discharge ED Provider: Jasen Stevens [facility] [place] HPI General Stated complaint: runny nose Mode of Arrival: Ambulatory Source of Information: Patient Time Seen by Provider: 03/06/24 13:24 Description of Symptoms (Recalled from Triage Doc. by RN): LEFT NOSTRIL DRAINAGE AND SUSPECTED INFECTED HEENT Symptoms (Recalled from RN notes): Yes Resp Symptoms (Recalled from RN notes): Yes Skin Symptoms (Recalled from RN notes): No MS Symptoms (Recalled from RN notes): No Functional Status (Recalled from RN notes): WNL Related Data Home Medications ?Medication ?Instructions ?Recorded ?Confirmed lisdexamfetamine 30 mg capsule 30 mg PO DAILY 02/19/24 02/19/24 (Vyvanse) Previous Rx's ?Medication ?Instructions ?Recorded cephalexin 500 mg capsule 1,000 mg (2 x 500 mg) PO BID #40 02/19/24 caps cyclobenzaprine 5 mg tablet 5 mg PO TID PRN muscle spasm #30 02/19/24 tabs ibuprofen 800 mg tablet 800 mg PO Q8H PRN pain #90 tabs 02/19/24 azithromycin 250 mg tablet 250 mg PO UD DOSE PK #6 tabs 03/06/24 (Zithromax) [id number] 5 ml PO Q6H PRN Cough #240 mL 03/06/24 2 mg-30 mg-10 mg/5 mL oral syrup (Bromfed DM) Allergies Allergy/AdvReac Type Severity Reaction Status Date / Time morphine [MORPHINE] Allergy Unknown Verified 02/19/24 15:12 Penicillins [PENICILLINS] Allergy Unknown Verified 02/19/24 15:12 Worker's Comp Is this a Worker's Comp case?: No [facility] Disclaimer: The information contained in this section may have been updated after the patient was seen, as this information can be updated by other users. 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 current occupational exposures/hazards: Yes ROS Obtained: Yes All systems reviewed & no additional complaints except as documented Constitutional Constitutional: Reports poor appetite Eyes Eyes: Reports system reviewed and no additional complaints, except as documented ENT Ears, Nose, Mouth, and Throat: Reports as per HPI Cardiovascular Cardiovascular: Reports system reviewed and no additional complaints, except as documented and Denies chest pain Respiratory Respiratory: Denies shortness of breath, Denies chest congestion, Reports cough, Denies stridor and Denies wheezing Gastrointestinal Gastrointestingal: Reports system reviewed and no additional complaints, except as documented; Denies abdominal pain, diarrhea or vomiting Musculoskeletal Musculoskeletal: Reports system reviewed and no additional complaints, except as documented and Denies arthralgias Integumentary/Breasts Skin/Breast: Reports system reviewed and no additional complaints, except as documented and Denies rash Neurologic Neurologic: Denies paresthesias Allergic/Immunologic Allergic/Immunologic: Denies wheezing Physical Exam General General appearance: alert and in no apparent distress Eye Eye exam: Present normal appearance, PERRL and EOMI ENT ENT exam: Present mucous membranes moist and normal external ear exam Expanded ENT Exam External ear exam: Present normal external inspection TM/Canal exam: Bilateral TM: erythema and bulging Nose exam: Absent sinus tenderness Nasal speculum exam: Bilateral: normal Mouth exam: Present normal external inspection; Absent drooling Teeth exam: Present normal inspection Throat exam: Present tonsillar erythema and tonsillomegaly Neck Neck exam: Present normal inspection, full ROM and trachea midline; Absent tenderness, lymphadenopathy or thyromegaly Chest Chest inspection: Present normal inspection and symmetric chest wall rise; Absent tenderness or rash Respiratory Respiratory exam: Present normal lung sounds bilaterally; Absent respiratory distress, wheezes, stridor or accessory muscle use Cardiovascular Cardiovascular exam: Present regular rate, normal rhythm and normal heart sounds Abdominal Exam Abdominal exam: Present soft; Absent distention, tenderness, guarding, rebound or rigidity Extremities Exam Extremities exam: Present normal inspection, full ROM and normal capillary refill; Absent tenderness or calf tenderness Back Exam Back exam: Present normal inspection and full ROM; Absent tenderness Neurological Exam Neurological exam: Present alert and oriented X3 Psychiatric Psychiatric exam: Present normal affect and normal mood Skin Skin exam: Present warm, dry, intact and normal color Lymphatic Lymphatic Findings: no adenopathy Medical Decision Making Medical Records Medical records reviewed: No I reviewed the patient's medical records. Screening: Per USPSTF and CDC recommendations, given the prevalence of disease in our region, it is our hospital?s policy to screen for HIV and viral Hepatitis for all patients aged 18 and over and those with ongoing risk factors. Ronald Inquiry Pt receiving controlled substance: No Vital Signs: 03/06/24 13:17 Temperature 97.8 F Temperature Source Oral Pulse Rate [Left Radial] 92 H Respiratory Rate 16 Blood Pressure [Left Arm] 114/58 L Blood Pressure Mean [Left Arm] 76 02 Sat by Pulse Oximetry 97
[2024-03-06 14:02] VITALS: BP 114/58; PULSE 92; RESP 16; TEMP 36.6
== END 2024-03-06 14:07 | disposition home or self-care (01) ==
PROVIDERS: Emergency Provider Nurse Practitioner Family; PCP Internal Medicine
DX: J01.90 Acute sinusitis, unspecified (principal)
CPT/HCPCS: 99212; 99214; G0463

== ENCOUNTER 2024-03-25 16:53 | Outpatient (CLI) | payer MEDICAID, SELFPAY | END 2024-03-25 23:59 | disposition home or self-care (01) | LOC: LAB 16:54 | PROVIDERS: PCP Internal Medicine; Visit Provider Internal Medicine | DX: Z86.19 Personal history of other infectious and parasitic diseases (principal); Z83.3 Family history of diabetes mellitus; E66.01 Morbid (severe) obesity due to excess calories; D64.9 Anemia, unspecified | CPT/HCPCS: 80050; 80053; 83036; 84443; 85025 ==

== ENCOUNTER 2024-04-01 19:00 | Outpatient (CLI) | payer MEDICAID, SELFPAY ==
[2024-04-01 19:44] LABS: Basophils # 0.1 K/mm3 (0-0.2); Basophils % 0.9 % (0.1-2.0); Eosinophils # 0.1 K/mm3 (0.0-0.4); Eosinophils % 1.1 % (0.1-12.0); Hematocrit 39.5 % (37.0-47.0); Hemoglobin 13.1 g/dL (12.2-16.2); Lymphocytes # 2.2 K/mm3 (0.7-4.5); Lymphocytes % 36.6 % (10-50); Mean Corpuscular HGB Conc 33.1 g/dL (31.8-35.4); Mean Corpuscular Hemoglobin 29.5 pg (27.0-31.2); Mean Platelet Volume 8.3 fl (7.4-10.4); Monocytes # 0.3 K/mm3 (0.1-1.0); Monocytes % 5.4 % (1.7-9.3); Neutrophils # 3.3 K/mm3 (1.8-7.8); Neutrophils % 55.9 % (37.0-80.0); Platelet Count 270 K/mm3 (142-424); Red Blood Count 4.43 M/mm3 (4.20-5.40); White Blood Count 5.9 K/mm3 (4.8-10.8)
[2024-04-01 19:58] LABS: Albumin Level 4.6 g/dl (3.5-5.0); Chloride 103 mmol/L (98-107); Potassium 3.7 mmoL/L (3.5-5.1); Sodium 137 mmol/L (136-145)
[2024-04-01 20:01] LABS: Alanine Aminotransferase 23 U/L (12-78); Albumin/Globulin Ratio 1.5 (1.1-1.8); Alkaline Phosphatase 82 U/L (38-126); Anion Gap 12.7 mEq/L (5-15); Aspartate Amino Transferase 25 U/L (14-36); Bilirubin,Total 0.5 mg/dl (0.2-1.3); Blood Urea Nitrogen 11 mg/dl (7-17); Carbon Dioxide 25 mmol/L (22.0-30.0); Estimated Glomerular Filt Rate 74 ml/min (>60); GFR (African American) 89 ML/MIN (>60); Globulin 3.1 g/dL (1.3-3.2); Total Protein,Serum 7.7 g/dl (6.3-8.2)
[2024-04-01 20:02] LABS: Calcium 9.4 mg/dl (8.4-10.2); Glucose 94 mg/dl (74-100)
[2024-04-01 20:32] LABS: Thyroid Stimulating Hormone 0.84 uIU/mL (0.465-4.68)
[2024-04-17 15:49] LABS: Hepatitis C Antibody REACTIVE
== END 2024-04-01 23:59 | disposition home or self-care (01) ==
LOC: LAB.DROPOF 19:04
PROVIDERS: PCP Internal Medicine; Visit Provider Internal Medicine
DX: D64.9 Anemia, unspecified (principal); E66.01 Morbid (severe) obesity due to excess calories; Z86.19 Personal history of other infectious and parasitic diseases; Z83.3 Family history of diabetes mellitus; Z68.39 Body mass index [BMI] 39.0-39.9, adult
CPT/HCPCS: 80050; 80053; 83036; 84443; 85025; 87380

== ENCOUNTER 2024-11-25 15:44 | Outpatient (CLI) | payer MEDICAID, SELFPAY ==
--- OUTSIDE RECORDS SUMMARY | 2024-11-25 15:46 | XMS_ITS | Clinical Summary ---
Author Organization Healthcare Address [address] [place] [address] Care Team Providers Care Search Optimization Analyst Name Role Phone Marv Goodman MD Primary Care Provider [phone] Social History Tobacco Use Types Packs/Day Years Used Date Smoking Tobacco: Every Day Alcohol Use Standard Drinks/Week Comments No 0 (1 standard drink = 0.6 oz pur e alcohol) Comments Unknown Sex and Gender Information Value Date Recorded Sex Assigned at Not on file Legal Sex Female 7:42 PM EDT Gender Identity Not on file Sexual Orientation Not on file Plan of Treatment Health Maintenance Due Date Last Done Comments [facility]-Depression Screening 1993 [facility]-/Child/Adol SDOH Screenings 1993 [facility]-Varicella Vaccines (1 of 2 - 13+ 2-dose series) 2006 HPV Vaccines (1 - 3-dose series) 2008 [facility]- SDOH Screenings 08/18/2011 [facility]-Adult SDOH Screenings 08/18/2011 [facility]-Hepatitis B Vaccines (2 of 3 - 3-dose series) 08/06/2012 07/09/2012 [facility]-Pap Smear 2014 [facility]-Cervical Cancer Screening 08/18/2023 [facility]-HPV/Cotest 08/18/2023 [id number] Vaccine (2 - 2023- season) 2024 10/28/2020 [facility]-Influenza Vaccine (Season Ended) 2025 04/07/2022 [facility]-DTaP,Tdap,and Td Vaccines (3 - Td or Tdap) 08/03/2032 08/03/2022, 07/09/2012 [facility]-Zoster Vaccines (1 of 2) 08/18/2043 [facility]-Hepatitis A Vaccines Aged Out 06/14/2018 No longer eligible based on patient's age to complete this topic [facility]-HIB Vaccines Aged Out No longer e ligible based on patient's age to complete this topic [facility]-IPV Vaccines Aged Out No longer e ligible based on patient's age to complete this topic [facility]-Pneumococcal Vaccine: Pediatrics (0 to 5 Years) and At-Risk Patients (6 to 49 Years) Aged Out No longer eligible b ased on patient's age to complete this topic [facility]-Rotavirus Vaccines Aged Out No lo nger eligible based on patient's age to complete this topic Insurance [place] [id number] [employer] Care Teams Search Optimization Analyst Relationship Specialty Start Date End Date Marv Goodman MD [address] [facility] [place] [id number] PCP - General 10/22/20
[2024-11-25 17:31] LABS: Albumin Level 4.5 g/dl (3.5-5.0); Chloride 107 mmol/L (98-107); Potassium 4.1 mmoL/L (3.5-5.1); Sodium 137 mmol/L (136-145)
[2024-11-25 17:34] LABS: Alanine Aminotransferase 100 U/L (12-78); Albumin/Globulin Ratio 1.6 (1.1-1.8); Alkaline Phosphatase 87 U/L (38-126); Anion Gap 12.1 mEq/L (5-15); Aspartate Amino Transferase 60 U/L (14-36); Bilirubin,Total 0.6 mg/dl (0.2-1.3); Blood Urea Nitrogen 5 mg/dl (7-17); Calcium 9.3 mg/dl (8.4-10.2); Carbon Dioxide 22 mmol/L (22.0-30.0); Estimated Glomerular Filt Rate 98 ml/min (>60); GFR (African American) 118 ML/MIN (>60); Globulin 2.9 g/dL (1.3-3.2); Glucose 101 mg/dl (74-100); Total Protein,Serum 7.4 g/dl (6.3-8.2)
[2024-11-25 18:05] LABS: Thyroid Stimulating Hormone 0.78 uIU/mL (0.465-4.68)
[2024-11-25 20:31] LABS: Folate 9.36 ng/mL
== END 2024-11-25 23:59 | disposition home or self-care (01) ==
PROVIDERS: PCP Internal Medicine; Visit Provider Internal Medicine
DX: G60.9 Hereditary and idiopathic neuropathy, unspecified (principal); E66.01 Morbid (severe) obesity due to excess calories; Z86.19 Personal history of other infectious and parasitic diseases
CPT/HCPCS: 36415; 80053; 82746; 84443

== ENCOUNTER 2024-11-26 15:40 | Outpatient (CLI) | payer MEDICAID, SELFPAY ==
--- OUTSIDE RECORDS SUMMARY | 2024-11-26 15:42 | XMS_ITS | Clinical Summary ---
Author Organization Healthcare Address [address] [place] [address] Care Team Providers Care Ampoule Washing Machine Operator Name Role Phone Marv Goodman MD Primary Care Provider Social History Tobacco Use Types Packs/Day Years [...] 2014 [facility]-Cervical Cancer Screening 08/18/2023 [facility]-HPV/Cotest 08/18/2023 [id number] Vaccine (2 - 2023- season) 2024 10/28/2020 [...] to complete this topic Insurance [place] [id number] [employer] Care Teams Ampoule Washing Machine Operator Relationship Specialty Start Date End Date Marv Goodman MD [address] [facility] [place] [id number] PCP - General 10/22/20
[2024-11-26 16:22] LABS: Basophils # 0.1 K/mm3 (0-0.2); Basophils % 0.8 % (0.1-2.0); Eosinophils # 0.1 Kmm3 (0.0-0.4); Eosinophils % 1.2 % (0.1-12.0); Hematocrit 35.7 % (37.0-47.0); Hemoglobin 11.2 g/dL (12.2-16.2); Immature Granulocytes # 0.01 10^3uL; Immature Granulocytes % 0.2 %; Lymphocytes # 1.7 K/mm3 (0.7-4.5); Lymphocytes % 28.9 % (10-50); Mean Corpuscular HGB Conc 31.4 g/dL (31.8-35.4); Mean Corpuscular Hemoglobin 26.1 pg (27.0-31.2); Mean Corpuscular Volume 83.2 fl (81-99); Mean Platelet Volume 10.3 fl (7.4-10.4); Monocytes # 0.3 K/mm3 (0.1-1.0); Monocytes % 4.7 % (1.7-9.3); Neutrophils # 3.8 K/mm3 (1.8-7.8); Neutrophils % 64.2 % (37.0-80.0); Nucleated Red Blood Cells # 0 10^3/uL; Nucleated Red Blood Cells % 0 %; Platelet Count 268 K/mm3 (142-424); Red Blood Count 4.29 M/mm3 (4.20-5.40); Red Cell Distribution Width 15.2 % (11.5-17.5)
[2024-11-26 16:56] LABS: Free T4 (Free Thyroxine) 1.19 ng/dl (0.78-2.19)
[2024-11-26 17:28] LABS: Hepatitis C Ab Qual. W/ RFX REACTIVE (Negative)
[2024-11-26 17:29] LABS: Vitamin B12 498 pg/mL (239-931)
[2024-11-26 19:00] LABS: Erythrocyte Sedimentation Rate 20 mm/hr (0-20)
[2024-12-02 23:09] LABS: 1,25 Dihydroxy Vitamin D 78 pg/mL (.); 1,25-Dihydroxy, Vitamin D-2 <10 pg/mL (.); 1,25-Dihydroxy, Vitamin D-3 77 pg/mL (.)
== END 2024-11-26 23:59 | disposition home or self-care (01) ==
LOC: LAB 15:41
PROVIDERS: PCP Internal Medicine; Visit Provider Internal Medicine
DX: G60.9 Hereditary and idiopathic neuropathy, unspecified (principal); E66.01 Morbid (severe) obesity due to excess calories; E55.9 Vitamin D deficiency, unspecified; Z83.3 Family history of diabetes mellitus; Z86.19 Personal history of other infectious and parasitic diseases
CPT/HCPCS: 36415; 80074; 82607; 82652; 83036; 84439; 85025; 85651; 87522

== ENCOUNTER 2024-12-09 15:35 | Outpatient (CLI) | payer MEDICAID, SELFPAY ==
--- OUTSIDE RECORDS SUMMARY | 2024-12-09 15:36 | XMS_ITS | Clinical Summary ---
Author Organization Healthcare Address [address] [place] [address] Care Team Providers Care Bankruptcy Manager Name Role Phone Marv Goodman MD Primary [...] 2014 [facility]-Cervical Cancer Screening 08/18/2023 [facility]-HPV/Cotest 08/18/2023 [id number] Vaccine (2 - 2023- season) 2024 10/28/2020 [...] to complete this topic Insurance [place] [id number] [employer] Care Teams Bankruptcy Manager Relationship Specialty Start Date End Date Marv Goodman MD [address] [facility] [place] [id number] PCP - General 10/22/20
== END 2024-12-09 23:59 | disposition home or self-care (01) ==
LOC: LAB 15:35
PROVIDERS: PCP Internal Medicine; Visit Provider Internal Medicine
DX: R74.8 Abnormal levels of other serum enzymes (principal)

== ENCOUNTER 2024-12-24 09:34 | Outpatient (CLI) | payer MEDICAID, SELFPAY ==
--- NOTE | 2024-12-24 09:30 | US_ITS ---
FINAL REPORT TECHNIQUE: Multiple transverse and longitudinal images CLINICAL HISTORY: Abnormal liver enzymes, suspect fatty liver diseas FINDINGS: The gallbladder shows no wall thickening, distention or stone disease. No biliary ductal dilatation is appreciated. No fluid collections are seen. Limited portions of the right liver are unremarkable. Limited portions of the right kidney are unremarkable. Pancreas is largely obscured. IMPRESSION: 1. No evidence of cholelithiasis 2. No evidence of biliary obstruction Reviewed, Interpreted and Dictated by Omega Melchor MD Transcribed by Ana Noland Authenticated and [facility]
--- OUTSIDE RECORDS SUMMARY | 2024-12-24 09:37 | XMS_ITS | Clinical Summary ---
Author Organization Healthcare Address [address] [place] [address] Care Team Providers Care Painter And Decorator Name Role Phone Marv Goodman MD Primary [...] 2014 [facility]-Cervical Cancer Screening 08/18/2023 [facility]-HPV/Cotest 08/18/2023 [id number] Vaccine (2 - 2023- season) 2024 10/28/2020 [facility]-Influenza Vaccine (#1) 2025 04/07/2022 [facility]-DTaP,Tdap,and Td Vaccines (3 - [...] to complete this topic Insurance [place] [id number] [employer] Care Teams Painter And Decorator Relationship Specialty Start Date End Date Marv Goodman MD [address] [facility] [place] [id number] PCP - General 10/22/20
== END 2024-12-24 23:59 | disposition home or self-care (01) ==
LOC: RAD 09:34
PROVIDERS: PCP Internal Medicine; Visit Provider Internal Medicine
DX: R74.8 Abnormal levels of other serum enzymes (principal)
CPT/HCPCS: 76705

== ENCOUNTER → 2025-03-06 06:22 | Outpatient (CLI) | payer MEDICAID, SELFPAY | LOC: SL 06:23 | PROVIDERS: PCP Internal Medicine; Visit Provider Internal Medicine | DX: R06.83 Snoring (principal); E66.01 Morbid (severe) obesity due to excess calories | CPT/HCPCS: G0399 ==

== ENCOUNTER 2025-05-12 22:42 | Emergency (ER) | payer MEDICAID, SELFPAY ==
[2025-05-12 22:47] VITALS: BP 142/69; PULSE 74; RESP 16; TEMP 37; O2SAT 100; BMI 33.1
--- OUTSIDE RECORDS SUMMARY | 2025-05-12 23:06 | XMS_ITS | Clinical Summary ---
Author Organization [facility] Address [address] [place] [address] Care Team Providers Care Surveillance System Monitor Name Role Phone Catarino Melton MD Primary Care Provider [phone] Allergies Active Allergy Reactions Criticality Noted Date Comments Morphine And Codeine Other (See Comments) Medium 11/12 causes more pain Penicillins Hives High 11/12/2017 Medications ferrous sulfate 325 (65 FE) MG tablet Take 1 tablet by mouth 2 (Two) Times a Day With Meals. 60 tablet 1 09/03/2023 9:35 AM EDT 09/03/2023 Active amphetamine-dex troamphetamine (ADDERALL) 5 MG tablet 10/16/2023 Active norethindrone-e thinyl estradiol-radha us fumarate (LOESTIN 24 FE) 1-20 MG-MCG(24) per tablet Take 1 tablet by mouth Daily. 90 tablet 3 10/19/2023 Active B Complex Vitamins (Vitamin B Complex) capsule Take by mouth. Active lisdexamfetamin e dimesylate (Vyvanse) 10 MG capsule Take 1 capsule by mouth Daily Active ibuprofen (ADVIL,MOTRIN) 800 MG tablet Take 1 tablet by mouth Every 6 (Six) Hours As Needed for Mild Pain. Active diphenhydrAMINE 12.5 MG/5ML elixir 20 mL, aluminum-magnes ium hydroxide-simet hicone 400-400-40 MG/5ML suspension 20 mL, Lidocaine Viscous HCl 2 % solution 20 mL Swish and spit Every 4 (Four) Hours As Needed. Active amoxicillin (AMOXIL) 875 MG tablet Take 1 tablet by mouth 2 (Two) Times a Day. Active HYDROcodone-jhoan taminophen (NORCO) 5-325 MG per tablet Take 2 tablets by mouth Every 6 (Six) Hours As Needed for Moderate Pain or Severe Pain (1 if moderate). 10 tablet 01/17/2024 Active ibuprofen (ADVIL,MOTRIN) 600 MG tablet Take 1 tablet by mouth Every 6 (Six) Hours As Needed for Moderate Pain or Mild Pain. 30 tablet 01/17/2024 Active docusate sodium (Colace) 100 MG capsule Take 1 capsule by mouth 2 (Two) Times a Day. 60 capsule 1 01/17/2024 Active Active Problems Problem Noted Date Diagnosed Date Encounter for sterilization 01/05/2024 Dysplasia of cervix, high grade LILLIE 2 01/05/2024 Vaginal bleeding 12/07/2023 Burning with urination 12/07/2023 ASCUS with positive high risk HPV cervical 11/22 follow-up 10/19/2023 08/31/2023 Headache 08/30/2023 Polyhydramnios in second trimester 08/30/2023 False labor before 37 comple libertad weeks of gestation during in third trimester, antepartum 08/24/2023 Encounter for screening for diabetes mellitus Overview (07/06/2023): Unable to draw 1hr, fingerstick 99 though. sent to hospital to draw CBC, Ab screen and RPR Depression during 04/13/2023 Overview (04/13/2023): Was on wellbutrin 450 prior to . Changed to zoloft first trimester but then back to wellbutrin 150 mg 9 weeks. Increased to 300 mg 04/13/23 due to mild persistent symptoms. Substance abuse in remission 02/22/2023 Overview (02/22/2023): H/o Heroin 2015, took suboxone until 2020. 09/14/2022 Vapes nicotine containing substance 04/07/2022 History of prior with IUGR Overview (04/07/2022): X 2 History of labor 04/07/2022 Hepatitis C Resolved Problems Problem Noted Date Diagnosed Date Resolved Date Initial obstetric visit in first trimester 02/22/2023 07/06/2023 09/25/2022 02/22/2023 Decreased movement 09/23/2022 Hx of delivery, curr ently , third trimester 09/23/2022 02/22/2023 Pruritus 09/19/2022 02/22/2023 Overview (09/19/2022): Labs 09/19 Polyhydramnios in third trimester 09/19/2022 02/22/2023 care in third trimester 09/19/2022 02/22/2023 Polyhydramnios affecting pre gnancy in third trimester 08/22/2022 02/22/2023 24 weeks gestation of 06/23/2022 09/19/2022 Uterine size date discrepancy 11/12/2017 04/07/2022 Substance abuse affecting pr egnancy, antepartum 11/12/2017 02/22/2023 Overview (04/07/2022): No alcohol in 3 months, no drug use in several years. Initially on vivitrol and adipex. Advised to wean adipex as recommended per Dr. Melton. Will discuss changing to PO medication from vivitrol as well. Unless C/S, declines pain meds. Previous delivery without epidural. Hepatitis C antibody positive in blood 11/12/2017 07/06/2023 Immunizations Immunization Administration Dates Next Due Fluzone (or Fluarix & Flulaval for VFC) >6mos Tdap 08/03/2022 Family History Medical History Relation Name Comments No Known Problems Brother No Known Problems Daughter Diabetes Father Hypertension Father No Known Problems Maternal Aunt No Known Problems Maternal Grandfather No Known Problems Maternal Grandmother No Known Problems Maternal Uncle Hypertension Mother No Known Problems Paternal Aunt No Known Problems Paternal Grandfather No Known Problems Paternal Grandmother No Known Problems Paternal Uncle No Known Problems Sister No Known Problems Son Relation Name Status Comments Brother Daughter Father Alive Maternal Aunt Maternal Grandfather Maternal Grandmother Maternal Uncle Mother Alive Paternal Aunt Paternal Grandfather Paternal Grandmother Paternal Uncle Sister Son Social History Tobacco Use Types Packs/Day Years Used Date Smoking Tobacco: Former Cigarettes 0.7 15 Smokeless Tobacco: Never Tobacco Cessation:Counseling Given: Not Answered Alcohol Use Standard Drinks/Week Comments Not Currently 0 (1 standard drink = 0.6 oz pure alcohol) last used in November of last year (once every 2-3 weeks) socially [facility] Utilities Answer Date Recorded In the past 12 months has th e electric, gas, oil, or water company threatened to shut off services in your home? No 08/31/2023 AUDIT-C Answer Date Recorded Q1: How often do you have a drink containing alcohol? Never 08/31/2023 Q2: How many drinks containi ng alcohol do you have on a typical day when you are drinking? Patient does not drink Q3: How often do you have si x or more drinks on one occasion? Never 08/31/2023 Overall Financial Resource Strain (CARDIA) Answe r Date Recorded How hard is it for you to pa y for the very basics like food, housing, medical care, and heating? Not very hard 08/31/2023 [facility] - Occupational Stress Questionnaire Answer Date Recorded Do you feel stress - tense, restless, nervous, or anxious, or unable to sleep at night because your mind is troubled all the time - these days? Not at all 08/31/2023 Exercise Vital Sign Answer Date Recorde d On average, how many days pe r week do you engage in moderate to strenuous exercise (like a brisk walk)? 3 days 08/31/2023 On average, how many minutes do you engage in exercise at this level? 30 min 08/31/2023 Hunger Vital Sign Answer Date Recorded Within the past 12 months, y ou worried that your food would run out before you got the money to buy more. Never true 08/31/19 24 Within the past 12 months, t he food you bought just didn't last and you didn't have money to get more. Never true 08/31/2023 PRAPARE - Transportation Answer Date Re corded In the past 12 months, has l ack of transportation kept you from medical appointments or from getting medications? No 08/10 In the past 12 months, has l ack of transportation kept you from meetings, work, or from getting things needed for daily living? No 08/31/2023 [place] Depression Scale Answer Date Recorded [place] Depression Scale Total 5 10/19/2023 The thought of harming myself has occurred to me . Unrecognized value 10/19/2023 Abuse Screen Answer Date Recorded Feels Unsafe at Home or Work/School no 08/31/2023 Feels Threatened by Someone no 08/10 Does Anyone Try to Keep You From Having Contact with Others or Doing Things Outside Your Home? no 08/31/2023 Physical Signs of Abuse Present no 08/31/2023 Housing Stability Answer Date Recorded Current Living Arrangements home 08/10 Potentially Unsafe Housing Conditions second cast d smoke exposure 08/31/2023 Family and Community Support Answer Quang e Recorded If for any reason you need h elp with day-to-day activities such as bathing, preparing meals, shopping, managing finances, etc., do you get the help you need? I don't need any help 08/31/2023 How often do you feel lonely or isolated from those around you? Never 08/31/2023 Employment Answer Date Recorded Do you want help finding or keeping work or a job? I do not need or want help 08/31/2023 Disabilities Answer Date Recorded Difficulty Concentrating, Remembering or Making Decisions yes 08/31/2023 Difficulty Managing Errands Independently no 08/31/2023 Education Answer Date Recorded Do you want help with school or training? For example, starting or completing job training or getting a high school diploma, GED or equivalent No 08/31/2023 Preferred Language Argentine 08/31/2023 PHQ-2 Answer Date Recorded Retired PHQ-9: Brief Depression Severity Measure Score 0 08/31/2023 Education Answer Date Recorded What is the highest level of school you have completed or the highest degree you have received? High school graduate 09/23/2022 Comments No Sex and Gender Information Value Date Recorded Sex Assigned at Not on file Legal Sex Female 7:54 AM EDT Gender Identity Not on file Sexual Orientation Not on file Last Filed Vital Signs Vital Sign Reading Time Taken Comments Blood Pressure 124/82 12/31/2023 10:38 AM EDT Pulse 74 09/03/2023 7:27 AM EDT Temperature 36.6 C (97.9 F) 09/03/2023 7:27 AM EDT Respiratory Rate 16 09/03/2023 7:27 AM EDT Oxygen Saturation 99% 09/03/2023 7:27 AM EDT Inhaled Oxygen Concentration - - Weight 104 kg (229 lb 12.8 oz) 12/31/2023 10:38 AM EDT Height 166.4 cm (5' 5.5 ) 12/31/2023 10:38 AM ED T Body Mass Index 37.66 12/31/2023 10:38 AM EDT Plan of Treatment Health Maintenance Due Date Last Done Comments Annual Gynecologic Pelvic and Breast Exam 1993 Hepatitis B (2 of 3 - 3-dose series) 08/06/2012 07/09/2012 ANNUAL PHYSICAL 11/12/2017 INFLUENZA VACCINE 01/09/2025 03/22/2023, 04/07/2022 TDAP/TD VACCINES (3 - Td or Tdap) 08/03/2032 08/03/2022, 07/09/2012 HEPATITIS C SCREENING Completed 08/29/2023 , 07/06/2023, 02/22/2023, Additional history exists Pneumococcal Vaccine 0-49 Aged Out No longer eligible based on patient's age to complete this topic Procedures Procedure Name Priority Date/Time Associated Diagnosis Comments OBSTETRIC PANEL Routine 02/22/2023 3:31 PM EDT Initial obstetric visit in first trimester from Last 3 Months or Most Recently Relevant to Health Maintenance Results * (ABNORMAL) Obstetric Panel (02/22/2023 3:31 PM EDT) Hepatitis B Surface Ag Negative Negative [facility] Hep C Virus Ab Reactive(A) Non Reactive [facility] Comment: HCV antibody alone does not differentiate between previously resolved infection and active infection. Equivocal and Reactive HCV antibody results should be followed up with an HCV RNA test to support the diagnosis of active HCV infection. RPR Non Reactive Non Reactive [facility] Rubella Antibodies, IgG 2.23 Immune >0.99 index [facility] Comment: Non-immune <0.90 Equivocal 0.90 - 0.99 Immune >0.99 ABO Type A [facility] Rh Factor Positive [facility] Comment: Please note: Prior records for this patient's ABO / Rh type are not available for additional verification. Antibody Screen Negative Negative [facility] WBC 7.2 3.4 - 10.8 x10E3/uL [facility] RBC 4.31 3.77 - 5.28 x10E6/uL [facility] Hemoglobin 12.5 11.1 - 15.9 g/dL [facility] Hematocrit 38.3 34.0 - 46.6 % [facility] MCV 89 79 - 97 fL [facility] MCH 29.0 26.6 - 33.0 pg [facility] MCHC 32.6 31.5 - 35.7 g/dL [facility] RDW 12.9 11.7 - 15.4 % [facility] Platelets 255 150 - 450 x10E3/uL [facility] Neutrophil Rel % 67 Not Estab. % [facility] Lymphocyte Rel % 27 Not Estab. % [facility] Monocyte Rel % 5 Not Estab. % [facility] Eosinophil Rel % 1 Not Estab. % [facility] Basophil Rel % 0 Not Estab. % [facility] Neutrophils Absolute 4.8 1.4 - 7.0 x10E3/uL [facility] Lymphocytes Absolute 1.9 0.7 - 3.1 x10E3/uL [facility] Monocytes Absolute 0.3 0.1 - 0.9 x10E3/uL [facility] Eosinophils Absolute 0.1 0.0 - 0.4 x10E3/uL [facility] Basophils Absolute 0.0 0.0 - 0.2 x10E3/uL [facility] Immature Granulocyte Rel % 0 Not Estab. % [facility] Immature Grans Absolute 0.0 0.0 - 0.1 x10E3/uL [facility] Blood 02/22/2023 3:31 PM EDT 02/22/2023 Narrative [facility] ([facility]) - 02/28/2023 1:09 PM EDT Performed at: 01 - [address] [id number] Education Sales Consultant: Shola Rojo PhD, Phone: [phone] Patient Fasting: N Haven Jaime MD LAB BLOOD ORDERABLES Final Result [facility] (AMBULATORY) [address] [place] [address], [facility] [address] [place] [address], from Last 3 Months or Most Recently Relevant to Health Maintenance Insurance [place] [id number] [facility] Advance Directives * CPR (Attempt to Resuscitate) (Latest Code Status on File) Date Activated Date Inactivated Comments 09/01/2023 7:36 AM 09/03/2023 2:13 PM Question Answer Comments Code Status (Patient has no pulse and is not breathing): CPR (Attempt to Resuscitate) Medical Interventions (Patie nt has pulse or is breathing): Full * CPR (Attempt to Resuscitate) Date Activated Date Inactivated Comments 09/01/2023 7:36 AM 09/01/2023 7:36 AM Question Answer Comments Code Status (Patient has no pulse and is not breathing): CPR (Attempt to Resuscitate) Medical Interventions (Patie nt has pulse or is breathing): Full Support Level Of Support Discussed With: Patient * CPR (Attempt to Resuscitate) Date Activated Date Inactivated Comments 09/26/2022 7:27 PM 09/28/2022 1:47 PM Question Answer Comments Code Status (Patient has no pulse and is not breathing): CPR (Attempt to Resuscitate) Medical Interventions (Patie nt has pulse or is breathing): Full * Full Code Date Activated Date Inactivated Comments 11/14/2017 5:40 AM 11/16/2017 5:37 PM * Full Code Date Activated Date Inactivated Comments 11/13/2017 11:21 AM 11/14/2017 5:40 AM Care Teams Surveillance System Monitor Relationship Specialty Start Date End Date Catarino Melton MD [address] [facility] [address] [facility] [place] [id number] PCP - General Internal Medicine 07/19/22
--- OUTSIDE RECORDS SUMMARY | 2025-05-12 23:06 | XMS_ITS | Clinical Summary ---
Author Organization [facility] Address [address] [place] [id number] Care Team Providers Care Fire Lieutenant Name Role Phone Unknown Provider, Levy Primary Care Provider Unavailable Source Comments [facility] is fully rolled out with thefollowing exceptions:General Clinical Research [facility] Social History Tobacco Use Types Packs/Day Years Used Date Smoking Tobacco: Never Assessed Comments Unknown Sex and Gender Information Value Date Recorded Sex Assigned at Not on file Legal Sex Female 9:33 AM EST Gender Identity Not on file Sexual Orientation Not on file Plan of Treatment Health Maintenance Due Date Last Done Comments MMR IMMUNIZATION (1 of 1 - S tandard series) 1994 DTAP/Tdap/Td IMMUNIZATION (1 - Tdap) 2000 VARICELLA IMMUNIZATION (1 of 2 - 13+ 2-dose series) 2006 HEPATITIS B IMMUNIZATION (1 of 3 - 19+ 3-dose series) 2012 HPV IMMUNIZATION (1 - 3-dose SCDM series) 2020 AMB SEASONAL FLU VACCINE (#1) 02/09/2025 COVID-19 Vaccine ( - 2024-2 6 season) 2025 HIB IMMUNIZATION Aged Out No longer e ligible based on patient's age to complete this topic IPV IMMUNIZATION Aged Out No longer e ligible based on patient's age to complete this topic MCV4 IMMUNIZATION Aged Out No longer eligible based on patient's age to complete this topic MENINGOCOCCAL B VACCINE Aged Out No l onger eligible based on patient's age to complete this topic PNEUMOCOCCAL IMMUNIZATION Aged Out No longer eligible based on patient's age to complete this topic Respiratory Syncytial Virus (RSV) <20mo Aged Out No longer eligible b ased on patient's age to complete this topic Care Teams Fire Lieutenant Relationship Specialty Start Date End Date Unknown Provider, Levy PCP - General HB Claims 08/16/20
--- NOTE | 2025-05-12 23:34 | HMH.EDGENADL ---
Discharge Plan Disposition Patient Disposition: Home, Self-Care Prescriptions Prescriptions: No Action prazosin 1 mg capsule 1 mg PO HS Patient Comments: TAKE 1 CAPSULE BY MOUTH EVERY NIGHT AT BEDTIME lisdexamfetamine [Vyvanse] 30 mg capsule 30 mg PO DAILY bupropion HCl 150 mg tablet extended release 24 hr PO Patient Comments: TAKE 1 TABLET BY MOUTH EVERY MORNING prazosin 2 mg capsule PO Patient Comments: TAKE 1 CAPSULE BY MOUTH EVERY NIGHT AT BEDTIME Vraylar 1.5 mg capsule PO Auvelity 45-105 mg tablet, IR and ER, biphasic PO Patient Comments: TAKE 1 TABLET BY MOUTH 2 TIMES A DAY spinosad [Natroba] 0.9 % suspension 120 ml topical Q7D Qty: 120 1RF Referrals Follow up/Referrals: Catarino Melton MD [Primary Care Provider, Medical] - See instructions Activity Restrictions/Add. Instructions Additional Instructions/Restrictions: Please follow wound care instructions as discussed. Discharge instruction Clinical Impressions Clinical Impression: Finger laceration Qualifiers: Encounter type: initial encounter Finger: index finger Damage to nail status: without damage Foreign body presence: without foreign body Laterality: right Qualified Code(s): S61.210A - Laceration without foreign body of right index finger without damage to nail, initial encounter Instructions Patient Instructions: DI for Laceration Repair Print Language Print Language: Persian Discharge ED Provider: Raji Donaldson Adult HPI General Chief complaint: Wound/Laceration Stated complaint: A/O slit open R index finger a can Time Seen by Provider: 05/12/25 23:00 Mode of Arrival: Ambulatory Source of Information: Patient Description of Symptoms (Recalled from ER Triage Doc. by RN): PT cut her right pointer finger on the lid of a spaghettio can History of Present Illness HPI narrative: 35-year-old female without significant past medical history presents for right index finger laceration. She cut it while opening spaghetti-o can. Denies any other injuries. Related Data Home Medications ?Medication ?Instructions ?Recorded ?Confirmed lisdexamfetamine 30 mg capsule 30 mg PO DAILY 02/19/24 03/28/25 (Vyvanse) bupropion HCl 150 mg 24 hr tablet, mg PO 11/21/24 03/28/25 extended release prazosin 1 mg capsule 1 mg PO HS 12/09/24 03/28/25 cariprazine 1.5 mg capsule mg PO 03/28/25 03/28/25 (Vraylar) dextromethorphan IR 45 PO 03/28/25 03/28/25 mg-bupropion ER 105 mg biphasic tablet (Auvelity) prazosin 2 mg capsule mg PO 03/28/25 03/28/25 Previous Rx's ?Medication ?Instructions ?Recorded spinosad 0.9 % topical suspension 120 ml topical Q7D 2 doses #120 mL 03/28/25 (Natroba) Allergies Allergy/AdvReac Type Severity Reaction Status Date / Time morphine (MORPHINE) Allergy Intermediate Unknown Verified 03/28/25 13:59 allergy reaction Penicillins (PENICILLINS) Allergy Intermediate Unknown Verified 03/28/25 13:59 allergy reaction PFSH PFSH Disclaimer: The information contained in this section may have been updated after the patient was seen, as this information can be updated by other users. 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 current occupational exposures/hazards: Yes Have you lived/traveled outside US in past 30 days?: No Contact w/someone who lives/traveled outside US past 30 days?: No Exposure to someone with infectious disease in past 14 days?: No Do you have a fever (greater than 100.4 F or 38 C)?: No Have you tested positive for COVID-19?: No Exposed to someone with COVID-19 in past 14 days?: No Do you have a sore throat?: No Do you have a cough?: No Do you have any weakness?: No Do you have any diarrhea?: No Are you experiencing any unusual bleeding?: No Do you have any muscle aches/pain?: No Do you have any abdominal pain?: No Are you experiencing loss of taste or smell?: No Other Medical History Have you received the Flu Vaccine for this season: No Have you received the Pneumonia Vaccine: No ROS Obtained: Yes All systems reviewed & no additional complaints except as documented Physical Exam General General appearance: alert and in no apparent distress Head Head exam: atraumatic and normocephalic Eye Eye exam: Present normal appearance, PERRL and EOMI ENT ENT exam: Present normal oropharynx and normal external ear exam Neck Neck exam: Present normal inspection and full ROM Chest Chest inspection: Present normal inspection and symmetric chest wall rise; Absent tenderness Respiratory Respiratory exam: Present normal lung sounds bilaterally; Absent respiratory distress Cardiovascular Cardiovascular exam: Present regular rate and normal rhythm Abdominal Exam Abdominal exam: Present soft; Absent distention, tenderness or guarding Extremities Exam Extremities exam: Present other (Right index finger laceration, approximately 1.5 cm, proximal and lateral to the nailbed base, hemostatic. Normal ligamentous exam.); Absent edema or joint swelling Back Exam Back exam: Present normal inspection; Absent tenderness Neurological Exam Neurological exam: Present alert and oriented X3; Absent motor sensory deficit Psychiatric Psychiatric exam: Present normal affect and normal mood Skin Skin exam: Present warm, dry and normal color Lymphatic Lymphatic Findings: no adenopathy Medical Decision Making Medical Records Medical records reviewed: Yes I reviewed the patient's medical records. Screening: Per USPSTF and CDC recommendations, given the prevalence of disease in our region, it is our hospital?s policy to screen for HIV and viral Hepatitis for all patients aged 18 and over and those with ongoing risk factors. Ronald Inquiry Pt receiving controlled substance: No Ronald was queried for this patient: No Vital Signs: 05/12/25 22:47 05/12/25 23:42 05/12/25 23:46 Temperature 98.6 F 98.6 F Temperature Source Oral Oral Pulse Rate 68 68 Pulse Rate [Right] 74 Respiratory Rate 16 17 Blood Pressure 142/69 H Blood Pressure [Right Arm] 142/69 H Blood Pressure Mean [Right Arm] 93 Blood Pressure Source Automatic Cuff Blood Pressure Source [Right Arm] Automatic Cuff Blood Pressure Position Sitting Blood Pressure Position [Right Arm] Sitting 02 Sat by Pulse Oximetry 100 99 Oxygen Delivery Method Room Air Room Air Room Air Lab Data Lab results reviewed: Yes I reviewed the patient's lab results. Orders (Tests/Meds): ED MEDICATIONS Discontinued Medications Generic Name Dose Route Start Last Admin Trade Name Freq PRN Reason Stop Dose Admin Tetanus/Reduced Diphtheria/Acell Pertussis 0.5 ml 05/12/25 23:42 05/12/25 23:51 Tet/Diphth/Pert-Adult 0.5ml Syringe IM 05/12/25 23:43 0.5 ml .ONCE ONE Administration Medical Decision Narrative: 29-year-old female presents for right index finger laceration. History was obtained via interactive discussion with the patient. On arrival, patient is [afebrile, hemodynamically stable, satting appropriately, alert, oriented x4, GCS 15], moving all extremities spontaneously. Full physical exam performed and significant for finger laceration as documented above. Differential includes but is not limited to laceration, foreign body, fracture. I recommended that we repair with sutures, patient declined and requested glue. The wound was copiously irrigated, repaired with Steri-Strips and Dermabond and placed in a splint to prevent movement. Return precautions were given. Patient was given a tetanus shot. Procedures Risk/Benefits of Procedure(s) Were Explained: Yes Laceration Laceration 1: Site: finger Side (If applicable): right Size (cm): 1.5 Description: linear Depth: simple, single layer Skin layer closed with: Dermabond Critical Care Critical Care Time Critical Care Time: No
[2025-05-12 23:42] VITALS: PULSE 68; O2SAT 99
[2025-05-12 23:46] VITALS: BP 142/69; PULSE 68; RESP 17; TEMP 37; O2SAT 99
[2025-05-12] MEDS: TET/DIPHTH/PERT-ADULT 0.5ML SYRINGE 0.5 ML IM (23:51)
== END 2025-05-12 23:59 | disposition home or self-care (01) ==
PROVIDERS: Emergency Provider Emergency Medicine; PCP Internal Medicine
DX: S61.210A Laceration without foreign body of right index finger without damage to nail, initial encounter (principal); W26.8XXA Contact with other sharp object(s), not elsewhere classified, initial encounter
CPT/HCPCS: 12001; 90471; 90715; 99283; 99284